=== PATIENT | female | born 2000 | race Caucasian/White ===

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

== ENCOUNTER → 2022-12-07 14:54 | Outpatient (BNVA) | payer OTHER, MEDICAID, SELFPAY | PROVIDERS: Family Provider Nurse Practitioner Family; PCP Nurse Practitioner Family; Visit Provider Nurse Practitioner Family | DX: Z12.4 Encounter for screening for malignant neoplasm of cervix (principal); N92.6 Irregular menstruation, unspecified; R74.8 Abnormal levels of other serum enzymes | CPT/HCPCS: 80053; 81025; 87624 ==

== ENCOUNTER 2023-02-27 08:38 | Day surgery (SDC) | payer MEDICAID, SELFPAY ==
[2023-02-24 16:14] VITALS: BMI 22.7
[2023-02-27] VITALS (13 sets, daily range): BP systolic 85–117; BP diastolic 58–76; PULSE 54–95; RESP 16–18; TEMP 36.3–37.2; O2SAT 99–100
[2023-02-27] MEDS: sodium chloride 0.9% 1,000 ML 30 ML IV (09:10)
[2023-02-27 09:19] LABS: OR HCG Qualitative Urine Negative (Negative)
[2023-02-27] MEDS: scopolamine 1.5 Patch 1 PATCH TRANSDERMA (09:34)
[2023-02-27] MEDS: ondansetron 2 mg/ML SDV 2 mL 4 MG IVP (09:35)
[2023-02-27] MEDS: diphenhydrAMINE 50 mg/mL SDV 1mL 12.5 MG IVP (09:35)
--- NOTE | 2023-02-27 09:40 | W.PM.OPSUD ---
Surgery/Procedure H&P Update DATE OF PROCEDURE: February 27, 2023 DATE H&P PERFORMED: 02/09/23 H&P UPDATE INFORMATION: I have reviewed H&P completed within last 30 days, I have examined patient prior to procedure and No changes to prior documentation PLANNED PROCEDURE: Operation Date: 02/27/23 10:05 Proposed Procedures p lap right inguinal hernia with mesh 70873,K40.90(Right) - Ammon Goldstein, DO
[2023-02-27] MEDS: ceFAZolin 2,000 MG in sodium chloride 0.9% (plus) 50 ML 100 MG IV (10:01)
[2023-02-27] MEDS: lidocaine-epi 2% 20 mL INJ INJECTION (10:28)
--- NOTE | 2023-02-27 11:27 | PM.OP ---
Operative Report Date of procedure: February 27, 2023 Pre-op diagnosis: Right inguinal hernia Post-op diagnosis: other (Right femoral hernia) Procedure done: Laparoscopic repair of right inguinal hernia with mesh Implants: Large right 3D max Bard mesh Specimens removed/disposition: None Surgeon: Dr. Ammon Goldstein DO Anesthesia: General Estimated blood loss (mL): 5 Complications: None apparent Brief History: This is a very pleasant 22-year-old female who presented my office with a right inguinal hernia. Laparoscopic repair with mesh was indicated. The risks and benefits were explained and documented. Procedure: Patient was wheeled into the operative room and placed on the OR table in a supine position. Abdomen was inspected prepped and draped in usual sterile fashion. Time-out was performed and all present were in agreement. A 15 blade scalpel was used to make 1.2 centimeter incision infraumbilically. Combination of sharp and blunt dissection was performed down to the anterior rectus sheath which was opened sharply. The dissecting balloon was then inserted into the space of Retzius and blown up. We put the camera into the port and identified that we were in the correct space. I then placed 2 5 millimeter trocars suprapubically in the midline. I then used endokitners to bluntly dissect in the space of Retzius out laterally. A femoral total hernia was identified on the right. Blunt dissection was performed to dissect the hernia sac out of the femoral canal. A large right inguinal mesh was then placed into the space of Retzius. The mesh was unrolled and tacked once medially at the pubic bone. The mesh laid out nicely over the spermatic cord. A small hole in the peritoneum was repaired with endoclips. I watched the hernia sac remained in place as insufflation was removed. Incisions were closed with 4-0 Monocryl in a subcuticular interrupted fashion. Skin glue was applied. Patient tolerated the procedure well.
[2023-02-27] MEDS: fentaNYL 50 mcg/mL INJ 2mL IVP (11:37)
[2023-02-27] MEDS: oxyCODONE-APAP 5-325 mg Tablet 1 TAB PO (12:02)
--- NOTE | 2023-02-27 13:56 | ANES.PREANE2 ---
Pre-Anesthetic Assessment Height/Weight: Height 1.7 m Weight 65.771 kg Temp Pulse Resp BP Pulse Ox O2 Del Method 98.9 F 54 L 18 103/59 100 Room Air 02/27/23 12:00 02/27/23 12:27 02/27/23 12:27 02/27/23 12:27 02/27/23 12:27 02/27/23 12:15 Operation Date: 02/27/23 10:05 Proposed Procedures p lap right inguinal hernia with mesh [id number],K40.90(Right) - Ammon Goldstein DO Familial anesthetic complications: none Was Beta Brittny taken within 24 hours: N/A Was Clonidine taken within 24 hours: N/A Last intake: Intake Last Liquid Date 02/26/23 Last Liquid Time 18:30 Last Solid Date 02/26/23 Last Solid Time 18:30 Social No alcohol and No tobacco Exam alert, oriented x 3, clear to auscultation bilaterally and regular rate & rhythm Airway Submandibular: within normal limits Cervical ROM: within normal limits Mallampati: Class II Dentition: full Neuropsych Anxiety and Depression Anesthetic Plan ASA status: 2 Anesthesia: General Medications/Allergies Home Medications Medication Instructions Recorded Confirmed Last Taken Type ascorbate calcium (vitamin C) 500 500 mg PO DAILY 06/21/21 02/24/23 02/13/23 History mg tablet cetirizine 10 mg capsule (Zyrtec) 10 mg PO DAILY PRN Allergic 06/21/21 02/24/23 02/13/23 History Symptoms docusate sodium 100 mg capsule 100 mg PO BID #14 caps 02/27/23 Unknown Rx (Colace) oxycodone-acetaminophen 5 mg-325 1 tab PO Q6H PRN pain #20 tabs 02/27/23 Unknown Rx mg tablet Allergies Allergy/AdvReac Type Severity Reaction Status Date / Time No Known Allergies Allergy Verified 02/27/23 09:04 [facility] Anesthesia Medical History Contraception management No pertinent past medical history neghx: htn,dm,thyroid,dvt/pe PCP: [facility] Surgical History History of History of tonsillectomy and adenoidectomy Family History Grandfather Heart disease Maternal Denies family history of Colon cancer Ovarian cancer Diabetes Hyperlipidemia Breast cancer Hypertension Uterine cancer Stroke Social History Smoking and tobacco status: never smoked Alcohol intake: never Substance/Drug Use: never Female Reproductive History Date of last menstrual period: 02/24/23 Spontaneous abortions: No Data Anesthesia Cardiac Studies: Holter Monitor 10/07/20
--- NOTE | 2023-02-27 16:22 | ANE.PACU2 ---
Inpatient post-anesthesia follow up: Airway intact: Yes Vital signs: Temperature 98.9 F Pulse Rate 54 Respiratory Rate 18 Blood Pressure 103/59 Pulse Oximetry 100 Oxygen Delivery Me thod Room Air Oxygen Flow Rate Fraction of Inspir ed Oxygen Hydration adequate: Yes Nausea and vomiting: No Pain level: 3 Mental status: Baseline
== END 2023-02-27 12:50 | disposition home or self-care (01) ==
PROVIDERS: Anesthesiology; PCP Nurse Practitioner Family; Visit Provider Surgery
PROC: (CPT 49650; principal; 2023-02-27 09:55)
DX: K40.90 Unilateral inguinal hernia, without obstruction or gangrene, not specified as recurrent (principal); Z79.899 Other long term (current) drug therapy
CPT/HCPCS: 49650; 51702; 81025; 84703; C1781; J0131; J0690; J1100; J1170; J1200; J2405; J2704; J2710; J3010; J3490; J7030

== ENCOUNTER → 2023-06-15 09:39 | Outpatient (BNVA) | payer OTHER, MEDICAID, SELFPAY | PROVIDERS: PCP Nurse Practitioner Family; Visit Provider Nurse Practitioner Women's Health | DX: R10.2 Pelvic and perineal pain (principal) | CPT/HCPCS: 81000 ==

== ENCOUNTER 2024-10-31 14:46 | Outpatient (CLI) | payer MEDICAID, SELFPAY ==
--- NOTE | 2024-10-31 14:57 | MR_ITS ---
WS: [id number] MRI HEAD WITHOUT CONTRAST TECHNIQUE: Sagittal T1, T2 axial, T2 axial FLAIR, axial and coronal T1 images, axial susceptibility w eighted imaging, axial diffusion weighted images, and coronal T2 images were obtained. CLINICAL INFORMATION: PERSISTENT HEADACHES COMPARISON: None. FINDINGS: No evidence of restricted diffusion to suggest acute ischemia. Ventricular system and basilar cistern s are patent. No suspicious intracranial signal abnormalities. Normal livingston-white differentiation. Nor mal posterior fossa. Normal vascular flow voids at the skull base. No extra-axial fluid collections. No evidence of mass or mass effect. Paranasal sinuses are well aerated. Normal posterior nasopharynx. Mastoid air cells are well aerated. No hemosiderin on the susceptibly weighted images. Normal optic chiasm and pituitary infundibulum. Te mporal lobes and hippocampal formations are normal in appearance. MR/MR head wo con* [id number] IMPRESSION: 1. No evidence of restricted diffusion to suggest acute ischemia. 2. No suspicious intracranial signal abnormalities. Normal livingston-white differen tiation. 3. No hemosiderin on susceptibility-weighted images. 4. No other suspicious findings.
== END 2024-10-31 14:47 | disposition home or self-care (01) ==
LOC: RAD 14:51
PROVIDERS: PCP Nurse Practitioner Family; Visit Provider Nurse Practitioner
DX: R51.9 Headache, unspecified (principal)
CPT/HCPCS: 70551

== ENCOUNTER → 2025-05-19 11:22 | Outpatient (BNVA) | payer MEDICAID, SELFPAY | PROVIDERS: PCP Nurse Practitioner Family; Visit Provider Nurse Practitioner Family | DX: R53.83 Other fatigue (principal) | CPT/HCPCS: 81025; 86160; 86618; 86666; 86668; 86757 ==

== ENCOUNTER 2025-05-28 12:11 | Outpatient (CLI) | payer MEDICAID, SELFPAY ==
--- NOTE | 2025-05-28 12:15 | US_ITS ---
WS: [id number] RIGHT UPPER QUADRANT ULTRASOUND HISTORY: R07.9 - Chest pain, unspecified COMPARISON: None available. Liver: 12.5 cm in length. Normal size liver and echogenicity. No bile duct dilatation or mass. Portal Vein: Normal hepatopetal flow with monophasic waveform. Gallbladder: Normally distended gallbladder with cholelithiasis. Numerous stones are present. No gallbladder wall thickening. CBD: 0.4 cm Pancreas: Normal size and echogenicity. Right kidney: 9.3 cm in length. Normal size and echogenicity. No hydronephrosis or mass. Aorta and IVC: Unremarkable abdominal aorta and IVC. No ascites. US/US gall bladder 49216 IMPRESSION: 1. Cholelithiasis without acute cholecystitis. 2. No hepatobiliary duct dilatation.
== END 2025-05-28 12:12 | disposition home or self-care (01) ==
LOC: RAD 12:15
PROVIDERS: PCP Nurse Practitioner; Visit Provider Nurse Practitioner Family
DX: R07.9 Chest pain, unspecified (principal); K80.20 Calculus of gallbladder without cholecystitis without obstruction
CPT/HCPCS: 76705

== ENCOUNTER 2025-06-02 17:11 | Emergency (ER) | payer MEDICAID, SELFPAY ==
--- OUTSIDE RECORDS SUMMARY | 2003-10-22 19:00 | XMS_ITS | Continuity of Care Document ---
Author Name [facility] Address [address] [place] [address] Organization [facility] Care Team Providers Care Oxygen System Tester Name Role Phone [facility] Unavailable Unavailable Problems Problem Status [...] Date Perfomer Comments Source wisdom teeth removal [facility] tonsillectomy [facility]/ [facility]
--- OUTSIDE RECORDS SUMMARY | 2025-03-19 09:50 | XMS_ITS ---
Author Organization [facility] Address [address] [address] Care Team Providers Care Self Propelled Mining Machine Operator Name Role Phone Alexa Shirley Unavailable [phone] Allergies No Known Allergies Results Component Value Reference Range Notes COMPREHENSIVE METABOLIC PANE L (66097) Reviewed date:03/23/2025 10:27:35 AM Interpretation: Performing Lab:[place], [facility]-[id number] Issa [facility], [id number] Oralia Tapia MD Notes/Report: 0 0 0 0 0 GLUCOSE 69 65-99 mg/dL Fasting reference interval UREA NITROGEN (BUN) 6 7-25 mg/dL CREATININE 0.52 0.50-0.96 mg/dL EGFR 135 > OR = 60 mL/min/1.73m2 BUN/CREATININE RATIO 12 6-22 (calc) SODIUM 140 135-146 mmol/L POTASSIUM 3.9 3.5-5.3 mmol/L CHLORIDE 101 98-110 mmol/L CARBON DIOXIDE 25 20-32 mmol/L CALCIUM 9.6 8.6-10.2 mg/dL PROTEIN, TOTAL 7.3 6.1-8.1 g/dL ALBUMIN 4.4 3.6-5.1 g/dL GLOBULIN 2.9 1.9-3.7 g/dL (calc) ALBUMIN/GLOBULIN RATIO 1.5 1.0-2.5 (calc) BILIRUBIN, TOTAL 0.3 0.2-1.2 mg/dL ALKALINE PHOSPHATASE 82 31-125 U/L AST 18 10-30 U/L ALT 11 6-29 U/L CBC (INCLUDES DIFF/PLT) ([id number]) Reviewed date:03/23/2025 10:27:35 AM Interpretation: Performing Lab:[facility]-[id number] Mane [id number] Oralia Tapia MD Notes/Report: 0 0 0 0 0 WHITE BLOOD CELL COUNT 5.6 3.8-10.8 Thousand/ uL RED BLOOD CELL COUNT 4.69 3.80-5.10 Million/uL HEMOGLOBIN 13.7 11.7-15.5 g/dL HEMATOCRIT 43.9 35.0-45.0 % MCV 93.6 80.0-100.0 fL MCH 29.2 27.0-33.0 pg MCHC 31.2 32.0-36.0 g/dL For adults, a slight decrease in the calculated MCHC value (in the range of 30 to 32 g/dL) is most likely not clinically significant; however, it should be interpreted with caution in correlation with other red cell parameters and the patient's clinical condition. RDW 12.5 11.0-15.0 % PLATELET COUNT 270 140-400 Thousand/uL MPV 10.5 7.5-12.5 fL ABSOLUTE NEUTROPHILS 2716 5553-6828 cells/uL ABSOLUTE LYMPHOCYTES 2094 850-3900 cells/uL ABSOLUTE MONOCYTES 526 200-950 cells/uL ABSOLUTE EOSINOPHILS 241 15-500 cells/uL ABSOLUTE BASOPHILS 22 0-200 cells/uL NEUTROPHILS 48.5 LYMPHOCYTES 37.4 MONOCYTES 9.4 EOSINOPHILS 4.3 BASOPHILS 0.4 URINALYSIS, COMPLETE W/REFLE X TO CULTURE ([id number]) Reviewed date:03/23/2025 10:27:35 AM Interpretation: Performing Lab:[facility]-[id number] Issa [place], [id number] Oralia Tapia MD Notes/Report: 0 0 0 0 0 0 0 0 0 0 0 0 0 0 0 COLOR YELLOW YELLOW APPEARANCE CLOUDY CLEAR SPECIFIC GRAVITY 1.024 1.001-1.035 PH 6.5 5.0-8.0 GLUCOSE NEGATIVE NEGATIVE BILIRUBIN NEGATIVE NEGATIVE KETONES TRACE NEGATIVE OCCULT BLOOD NEGATIVE NEGATIVE PROTEIN TRACE NEGATIVE NITRITE NEGATIVE NEGATIVE LEUKOCYTE ESTERASE TRACE NEGATIVE WBC 0-5 < OR = 5 /HPF RBC NONE SEEN < OR = 2 /HPF SQUAMOUS EPITHELIAL CELLS 40-60 < OR = 5 /HPF BACTERIA MODERATE NONE SEEN /HPF CALCIUM OXALATE CRYSTALS MODERATE NONE OR FEW /HPF HYALINE CAST NONE SEEN NONE SEEN /LPF NOTE This urine was analyzed for the presence of WBC, RBC, bacteria, casts, and other formed elements. Only those elements seen were reported. REFLEXIVE URINE CULTURE CULTURE INDICATED - RESULTS TO FOLLOW CULTURE, URINE, ROUTINE Micro Number: [id number] Test Status: Final Specimen Source: Urine Specimen Quality: Adequate Result: Mixed genital kathi isolated. These superficial bacteria are not indicative of a urinary tract infection. No further organism identification is warranted on this specimen. If clinically indicated, recollect clean-catch, mid-stream urine and transfer immediately to Urine Culture Transport Tube. CULTURE, URINE, ROUTINE SEE NOTE CULTURE INDICATED - RESULTS TO FOLLOW CULTURE, URINE, ROUTINE Micro Number: [id number] Test Status: Final Specimen Source: Urine Specimen Quality: Adequate Result: Mixed genital kathi isolated. These superficial bacteria are not indicative of a urinary tract infection. No further organism identification is warranted on this specimen. If clinically indicated, recollect clean-catch, mid-stream urine and transfer immediately to Urine Culture Transport Tube. VITAMIN B12/FOLATE, SERUM PA BRYSON (7065) Reviewed date:03/23/2025 10:27:35 AM Interpretation: Performing Lab:[facility]-[id number] Issa [place], [id number] Oralia Tapia MD Notes/Report: 0 0 0 0 0 VITAMIN B12 422 793-4007 pg/mL FOLATE, SERUM 23.8 Reference Range Low: <3.4 Borderline: 3.4-5.4 Normal: >5.4 TSH W/REFLEX TO FT4 ([id number]) Reviewed date:03/23/2025 10:27:35 AM Interpretation: Performing Lab:[facility]-[id number] Issa [place], [id number] Oralia Tapia MD Notes/Report: 0 0 0 0 0 TSH W/REFLEX TO FT4 1.33 Reference Range > or = 20 Years 0.40-4.50 Ranges First trimester 0.26-2.66 Second trimester 0.55-2.73 Third trimester 0.43-2.91 REASON FOR VISIT thinks meds are making her sick, req bloodwork Medications Medication SIG (Take, Route, Frequency, Duration) Notes Start Date End Date Status oxyCODONE HCl 5 MG Oral; Duration: 2 Days Not-Taking Sertraline HCl 50 MG TAKE 1 TABLET BY MO UTH DAILY Oral; Duration: 30 Days Not-Taking metroNIDAZOLE 500 MG Oral; Duration: 7 Days Not-Taking Doxycycline Hyclate 100 MG Oral; Duration: 7 Days Not-Taking Escitalopram Oxalate 10 MG Oral; Duratio n: 30 Days Not-Taking oxyCODONE-Acetaminophen 5-325 MG Oral; Duration: 5 Days Not-T aking Ondansetron HCl 4 MG 1 tablet as needed for nausea/vomiting Orally three times daily; Duration: 3 09/18/2024 Not-Taking Ondansetron [address] one tablet ON TOP OF THE TONGUE WHERE IT WILL DISSOLVE THEN SWALLOW EVERY 6 HOURS NEEDED FOR NAUSEA/EMESIS Oral; Duration: 7 Days Not-Taking Albuterol Not-Taking SUMAtriptan Succinate 50 MG 1 tablet as needed, may take second dose at least 2 hours after first dose . Orally Once a day; Duration: 30 days As needed for migraine headache 09/18/2024 Not-Taking Amitriptyline HCl 10 MG TAKE ONE TABLET BY MOUTH ONCE DAILY AT BEDTIME Oral; Duration: 30 Days Active Omeprazole 20 MG 1 capsule 1/2 to 1 hour before morning meal Orally Once a day; Duration: 30 day(s) 03/11/2025 Active Rizatriptan Benzoate [address] one tab let ON TOP OF THE TONGUE WHERE IT WILL DISSOLVE THEN SWALLOW AT ONSET OF MIGRAINE MAY REPEAT IN TWO HOURS IF NEEDED MAX DOSE TWO TABLETS IN 24 HOURS Oral; Duration: 30 Days Active Social History Sex Assigned At : Social History Observation Description Sex Assigned At Female Vital Signs Blood pressure systolic 122 mm Hg 03/19/20 25 Blood pressure diastolic 76 mm Hg 025 Heart Rate 82 /min 03/19/2025 Temperature 98.3 degrees Fahrenheit 03/19/20 25 Oximetry 96 % 03/19/2025 Weight 178.8 lbs 03/19/2025 Weight-kg 81.1 kg 03/19/2025 Height 67 in 03/19/2025 Height-cm 170.18 cm 03/19/2025 BMI 28 kg/m2 03/19/2025 Encounters Encounter Location Date Provider Diagnosis [address] [address] 03/19/2025 Alexa Shirley Malaise R53.81 Assessments Encounter Date Diagnosis (ICD Code) Assessment Notes Treatment Notes Treatment Clinical Notes Section Notes 03/19/2025 Malaise (ICD-10 - R53.81) Plan Of Treatment No Information Progress Notes * Arleth GAN KDOB:[birth year] (24 yo F)Acc No.[id number]:03/19/2025 Patient: Arleth LOVETT K Provider: Kelsy Shirley :2000 A ge:24 Y S ex:Female Date:03/19/2025 Address:[address] [place] [address] , [place] [facility] [id number] Subjective: * Chief Complaints: * 1 . Thinks meds are making her sick, req bloodwork. * HPI: T ransition of Care: Here today with c/o feeling run down almost daily for a few weeks-this has gotten worse concerned one of her meds is causing this denies pain No meds have changed did start Omeprazole regular menses denies fever. * Medical History: * Medications: T aking Amitriptyline HCl 10 MG Tablet TAKE ONE TABLET BY MOUTH ONCE DAILY AT BEDTIME Oral , Taking Rizatriptan Benzoate [address] one tablet ON TOP OF THE TONGUE WHERE IT WILL DISSOLVE THEN SWALLOW AT ONSET OF MIGRAINE MAY REPEAT IN TWO HOURS IF NEEDED MAX DOSE TWO TABLETS IN 24 HOURS Oral , Taking Omeprazole 20 MG Capsule Delayed Release 1 capsule 1/2 to 1 hour before morning meal Orally Once a day , Not-Taking Ondansetron 4 [address] place one tablet ON TOP OF THE TONGUE WHERE IT WILL DISSOLVE THEN SWALLOW EVERY 6 HOURS NEEDED FOR NAUSEA/EMESIS Oral , Not-Taking Ondansetron HCl 4 MG Tablet 1 tablet as needed for nausea/vomiting Orally three times daily , Not-Taking SUMAtriptan Succinate 50 MG Tablet 1 tablet as needed, may take second dose at least 2 hours after first dose . Orally Once a day As needed for migraine headache, Not-Taking Albuterol , Not- Taking oxyCODONE-Acetaminophen 5-325 MG Tablet Oral , Not-Taking Escitalopram Oxalate 10 MG Tablet Oral , Not-Taking Doxycycline Hyclate 100 MG Capsule Oral , Not-Taking Sertraline HCl 50 MG Tablet TAKE 1 TABLET BY MOUTH DAILY Oral , Not-Taking oxyCODONE HCl 5 MG Tablet Oral , Not-Taking metroNIDAZOLE 500 MG Tablet Oral , Medication List reviewed and reconciled with the patient * Allergies: N .K.D.A. Objective: * Vitals: B P:122/76mm Hg, HR:82/min, Temp:98.3F, Oxygen sat %:96%, Wt:178.8lbs, Wt-k.1 kg, Ht: 67 in, Ht-cm: 170.18 cm, BMI:28Index, Pain scale:01-10, Body Surface Area: 1.96. Assessment: * [facility] (Primary[facility] Plan: * Treatment: Value Reference Range G LUCOSE 69 65-99 - mg/dL * U VIRGINIE NITROGEN (BUN) 6 L 7-25 - mg/dL * C REATININE 0.52 0.50-0.96 - mg/dL * B UN/CREATININE RATIO 12 6-22 - (calc) * S ODIUM 140 135-146 - mmol/L * P OTASSIUM 3.9 3.5-5.3 - mmol/L * C HLORIDE 101 98-110 - mmol/L * C ARBON DIOXIDE 25 20-32 - mmol/L * C ALCIUM 9.6 8.6-10.2 - mg/dL * P ROTEIN, TOTAL 7.3 6.1-8.1 - g/dL * A LBUMIN 4.4 3.6-5.1 - g/dL * G LOBULIN 2.9 1.9-3.7 - g/dL (calc ) * A LBUMIN/GLOBULIN RATIO 1.5 1.0-2.5 - (calc) * B ILIRUBIN, TOTAL 0.3 0.2-1.2 - mg/dL * A LKALINE PHOSPHATASE 82 31-125 - U/L * A ST 18 10-30 - U/L * A LT 11 6-29 - U/L * E GFR 135 > OR = 60 - mL/min/1 .73m2 ?LAB: CBC (INCLUDES DIFF/PLT) ([id number]) (Collection Date & Time - 03/20/2025 08:40 AM)* Value Reference Range W SHANTI BLOOD CELL COUNT 5.6 3.8-10.8 - Thousan d/uL * R ED BLOOD CELL COUNT 4.69 3.80-5.10 - Million/ uL * H EMOGLOBIN 13.7 11.7-15.5 - g/dL * H EMATOCRIT 43.9 35.0-45.0 - % * M CV 93.6 80.0-100.0 - fL * M CH 29.2 27.0-33.0 - pg * M CHC 31.2 L 32.0-36.0 - g/dL * R DW 12.5 11.0-15.0 - % * P LATELET COUNT 270 140-400 - Thousand/u L * N EUTROPHILS 48.5 - % * A BSOLUTE NEUTROPHILS 2716 5709-4075 - cells/uL * L YMPHOCYTES 37.4 - % * A BSOLUTE LYMPHOCYTES 2094 850-3900 - cells/uL * M ONOCYTES 9.4 - % * A BSOLUTE MONOCYTES 526 200-950 - cells/uL * E OSINOPHILS 4.3 - % * A BSOLUTE EOSINOPHILS 241 15-500 - cells/uL * B ASOPHILS 0.4 - % * A BSOLUTE BASOPHILS 22 0-200 - cells/uL * M PV 10.5 7.5-12.5 - fL ?LAB: URINALYSIS, COMPLETE W/REFLEX TO CULTURE ([id number]) (Collection Date & Time - 03/20/2025 08:40AM)* Value Reference Range C OLOR YELLOW YELLOW - * A PPEARANCE CLOUDY A CLEAR - * B ILIRUBIN NEGATIVE NEGATIVE - * K ETONES TRACE A NEGATIVE - * S PECIFIC GRAVITY 1.024 1.001-1.035 - * O CCULT BLOOD NEGATIVE NEGATIVE - * P H 6.5 5.0-8.0 - * P ROTEIN TRACE A NEGATIVE - * N ITRITE NEGATIVE NEGATIVE - * L EUKOCYTE ESTERASE TRACE A NEGATIVE - * W BC 0-5 < OR = 5 - /HPF * R BC NONE SEEN < OR = 2 - /HPF * S QUAMOUS EPITHELIAL CELLS 40-60 A < OR = 5 - /HPF * B ACTERIA MODERATE A NONE SEEN - /HPF * C ALCIUM OXALATE CRYSTALS MODERATE A NONE OR FEW - /H PF * H YALINE CAST NONE SEEN NONE SEEN - /LPF * G LUCOSE NEGATIVE NEGATIVE - * R EFLEXIVE URINE CULTURE SEE NOTE - ?LAB: VITAMIN B12/FOLATE, SERUM PANEL (7065) (Collection Date & Time - 03/20/2025 08:40 AM)* Value Reference Range F OLATE, SERUM 23.8 - ng/mL * V ITAMIN B12 922 828-2359 - pg/mL ?LAB: TSH W/REFLEX TO FT4 (25042) (Collection Date & Time - 03/20/2025 08:40 AM)* Value Reference Range T SH W/REFLEX TO FT4 1.33 - mIU/L * Procedure Codes: 1 125F AMNT PAIN NOTED PAIN PRSNT, 1126F AMNT PAIN NOTED NONE PRSNT * Billing Information: * Visit Code: * Procedure Codes: 1125F AMNT PAIN NOTED PAIN PRSNT. 1126F AMNT PAIN NOTED NONE PRSNT. * Electronic signature of Chele Shirley , [email or web address] on 06/04/2025 at 12:16 PM CDT Sign off status: Pending * Provider: Kelsy Shirley Date: 0 03/19/2025 Generated for Romelia vizcaino/Prakash/eTkaren on: 0 06/04/2025 12:16 PM CDT History and Physical Notes * HPI (History of Present Illness) Category Sub-Category Detail Notes Category Not es Transition of Care Here today with c/o feeling run down almost daily for a few weeks-this has gotten worse concerned one of her meds is causing this denies pain No meds have changed did start Omeprazole regular menses denies fever
--- OUTSIDE RECORDS SUMMARY | 2025-05-20 06:40 | XMS_ITS ---
Author Organization [facility] Address [address] [place] [address] Care Team Providers Care Conference Concierge Name Role Phone Alexa Shirley [phone] REASON FOR VISIT symptoms continue Social History Sex Assigned At : Social History Observation Description Sex Assigned At Female Encounters Encounter Location Date [facility] [address] [address] 05/20/2025 Alexa Shirley Plan Of Treatment No Information Progress Notes * Arleth GAN KDOB:[birth year] (24 yo F)Acc No.[id number]:05/20/2025 Patient: Maksim STOCK Arleth Cardenas Provider: Kelsy Shirley :2000 A ge:24 Y S ex:Female Date:05/20/2025 Address:[address] [place], [place] [id number] Subjective: * Chief Complaints: * 1 . Symptoms continue. * Medical History: Objective: * Vitals: Assessment: Plan: * Treatment: * Billing Information: * Visit Code: * Procedure Codes: * Electronic signature of Chele Shirley GUYPBCMSNehemiah on 06/04/2025 at 12:16 PM CDT Sign off status: Pending * Provider: Kelsy Shirley Date: 0 05/20/2025 Generated for Romelia ng/Faxing/eTransmitting on: 06/04/2025 12:16 PM CDT
[2025-06-02 17:15] VITALS: BP 116/79; PULSE 77; RESP 16; TEMP 36.8; O2SAT 97; BMI 26.6
--- NOTE | 2025-06-02 17:50 | ED_ITS ---
HPI - Abdominal Pain 2 General: Chief Complaint: Abdominal Pain Stated Complaint: abd pain, n/v/d/f, NORTON Time Seen by Provider: 06/02/25 17:36 History of Present Illness: Patient is a 24-year-old female without medical issues, presented to ED with diarrhea, nausea, and abdominal pain. Patient was recently worked up for right upper quadrant on and off pain and found to have cholelithiasis without acute cholecystitis. She is currently awaiting surgeon appointment in 7 days, next Monday. Today, she stated she had diarrhea a large volume, nonbloody, x 3, and severe nausea without emesis. She is trying to keep from throwing up. This was not associated with eating today. She has not had alcohol intake. She has severe right upper quadrant abdominal pain, for which she took a pain pill she was given by primary and has continued right upper quadrant pain. Associated Symptoms: Reports diarrhea, nausea and vomiting; Denies chills and fever(s) Related Data Date of Last Menstrual Period: 06/01/25 Home Medications ?Medication ?Instructions ?Recorded ?Confirmed No Known Home Medications 05/28/2505/23 Allergies Allergy/AdvReac Type Severity Reaction Status Date / Time No Known Allergies Allergy Verified 06/02/25 17:18 Review of Systems 2 General: Reports: 10 or more systems reviewed and unremarkable except in HPI and below Const: Reports: body aches, change in appetite and fatigue; Denies: fever(s) or chills Eyes: Denies: change in vision or blurry vision ENMT: Denies: throat pain or mouth pain Card: Denies: chest pain or palpitations Resp: Denies: dyspnea or non-productive cough GI: Reports: abdominal pain, nausea, vomiting and diarrhea : Denies: flank pain or difficulty voiding Musc: Denies: neck pain, back pain or extremity pain Skin/Breast: Denies: rash or pruritus Neuro: Denies: headache(s) or numbness in extremities Psych: Denies: anxiety or depression Kalpesh/Lymph: Denies: easy bruising or easy bleeding PFSH ED 2 PFSH: Medical History (Updated 06/02/25 @ 19:54 by CJ Crane) No pertinent past medical history neghx: htn,dm,thyroid,dvt/pe PCP: [facility] Contraception management Surgical History History of inguinal hernia repair (~02/2023) History of History of tonsillectomy and adenoidectomy Family History Grandfather Heart disease Maternal Denies family history of Colon cancer Ovarian cancer Diabetes Hyperlipidemia Breast cancer Hypertension Uterine cancer Stroke Social History Smoking and tobacco/nicotine status: never used tobacco/nicotine Alcohol intake: never Substance/Drug Use: never Female Reproductive History: Date of last menstrual period: 06/01/25 S pontaneous abortions: No Physical Exam 2 Const: COMMON NORMALS: no acute distress, average body habitus and patient oriented x3 EXAM LIMITATIONS: altered mental status GENERAL APPEARANCE: c ooperative and comfortable HENMT: COMMON NORMALS: normocephalic, atraumatic and hearing grossly normal bilaterally HEAD & SCALP: normocephalic and atraumatic Neck/C-Spine: COMMON NORMALS: full ROM and no lymphadenopathy Lymph: LYMPHATIC: no lymphadenopathy noted Chest: COMMONS NORMALS: normal inspection of the chest, normal palpation of entire chest wall and normal palpation of the breasts BREAST/AXILLA PALPATION: Yes normal palpation of the breasts Resp: COMMON NORMALS: normal respiratory effort, No retractions and clear to auscultation bilaterally AUSCULTATION: clear to auscultation bilaterally Cardio: COMMON NORMALS: regular rate and regular rhythm RATE: regular rate RHYTHM: regular rhythm GI: COMMON NORMALS: Normal to inspection, nondistended, normoactive bowel sounds present, Soft to palpation and non-tender PALPATION: Yes Soft to palpation : COMMON NORMALS: Yes no CVA tenderness BLADDER/KIDNEY EXAM: Yes no CVA tenderness Back/Pelvis: COMMON NORMALS: no CVA tenderness Neuro: COMMON NORMALS: patient oriented x3, CN's II-XII intact bilaterally and moves all extremities Psych: COMMON NORMALS: mental status grossly normal, Normal thought process present and speech normal SPEECH: Yes normal speech THOUGHT PROCESS: N ormal thought process present Skin: COMMON NORMALS: no rashes or lesions noted and no wounds GENERAL SKIN EXAM: no rashes or lesions noted Course 2 Reevaluation(s): Reevaluation #1: Patient states she still continues to have pain Vital Signs: Vital signs: Vital Signs Temperature 98.2 F 06/02/25 17:15 Pulse Rate 68 06/02/25 21:17 Respiratory Rate 16 06/02/25 18:43 Blood Pressure 104/66 06/02/25 21:17 Pulse Oximetry 96 06/02/25 21:17 Oxygen Delivery Me thod Room Air 06/02/25 19:21 MDM - Abdominal Pain Medical Decision Making Patient is a 24-year-old female with cholelithiasis and right upper quadrant abdominal pain, labs without leukocytosis, without neutrophilia, and without elevated lipase. Patient therefore does not have acute cholecystitis. Discussed with patient this is the frustrating portion of the cholelithiasis. She has an appointment with surgeon next week. Will have patient return to ED if she has worsening pain, and there is concern for acute cholecystitis. No concern for additional testing at this time/no concern for acute pancreatitis given labs. Exam has mild right upper quadrant tenderness, without guarding, and Rios sign +. No elevation in LFTs, therefore no choledocholithiasis. Patient was discharged home with antiemetics, clear liquid diet, and hydrocodone was given x 1 Lab Data 06/02/25 17:29 06/02/25 17:29 Labs/Radiology: Laboratory Results WBC 4.85 10^3/uL (3.29-11.43) 06/02/25 17:29 RBC 4.88 10^6/uL (3.85-5.65) 06/02/25 17:29 Hgb 14.30 g/dL (11.27-16.99) 06/02/25 17:29 Hct 43.6 % (36-47) 06/02/25 17:29 MCV 89.3 fl (85-98) 06/02/25 17: MCH 29.3 pg (27-33) 06/02/25 17: MCHC 32.8 g/dL (30-55) 06/02/25 17:29 RDW 12.0 % (12.1-15.1) L 06/02/25 17:29 Plt Count 259 10^3/cmm (157-399) 06/02/25 17: MPV 9.9 fL (7.4-10.4) 06/02/25 17:29 Neut % (Auto) 50.2 % 06/02/25 17: Lymph % (Auto) 37.9 % 06/02/25 17: Guadalupe % (Auto) 9.7 % 06/02/25 17: Eos % (Auto) 1.6 % 06/02/25 17: Baso % (Auto) 0.4 % 06/02/25: Neut # (Auto) 2.43 10^3/uL (1.8-7.7) 06/02/25 17: Lymph # (Auto) 1.8 10^3/uL (0.8-4.8) 06/02/25: Guadalupe # (Auto) 0.5 10^3/uL (0.2-0.9) 06/02/25: Eos # (Auto) 0.1 10^3/uL (0.0-0.8) 06/02/25: Baso # (Auto) 0.0 10^3/uL (0.0-0.1) 06/02/25 17: Nucleated RBC % (auto) 0 % 06/02/25: Nucleated RBCs # 0.0 /100WBC 06/02/25: Sodium 140 mmol/L (136-145) 06/02/25 17: Potassium 4.0 mmol/L (3.5-5.1) 06/02/25: Chloride 105 mmol/L (98-107) 06/02/25: Carbon Dioxide 24 mmol/L (22-29) 06/02/25 17: Anion Gap 15.0 (5-19) 06/02/25 17: BUN 9 mg/dL (6-20) 06/02/25 17: Creatinine 0.6 mg/dL (0.5-0.9) 06/02/25 17: GFR Calculation 125.0 mL/min (90-130) 06/02/25 17: Glucose 91 mg/dL (65-115) 06/02/25 17: Calculated Osmolality 288 mOsm/kg (285-295) 06/02/25: Lactic Acid 0.8 mmol/L (0.5-2.2) 06/02/25 17: Calcium 9.2 mg/dL (8.5-10.5) 06/02/25 17: Total Bilirubin 0.2 mg/dL (0.15-1.2) 06/02/25 17: AST 15 U/L (0-32) 06/02/25 17: ALT 11 U/L (0-33) 06/02/25 17: Alkaline Phosphatase 96 U/L (35-105) 06/02/25 17: Total Protein 7.7 g/dL (6.6-8.7) 06/02/25 17: Albumin 4.4 g/dL (3.5-5.2) 06/02/25 17: Globulin 3.3 g/dL (1.3-4.6) 06/02/25 17: Lipase 30 U/L (13-60) 06/02/25 17: HCG, Qual Negative (Negative) 06/02/25 17: Urine Color Yellow (Yellow) 06/02/25 17: Urine Appearance Clear (CLEAR) 06/02/25 17: Urine pH 5.5 (5-7) 06/02/25 17: Ur Specific [place] 1.030 (1.005-1.030) 06/02/25: Urine Protein Negative (Negative) 06/02/25 17: Urine Glucose (UA) Negative (Normal) 06/02/25 17: Urine Ketones Trace (Negative) 06/02/25 17: Urine Blood 1+ (Negative) A 06/02/25 17: Urine Nitrate Negative (Negative) 06/02/25 17: Urine Bilirubin Negative (Negative) 06/02/25 17: Urine Urobilinogen 1.0 mg/dL (Negative) 06/02/25 17: Ur Leukocyte Esterase Negative (Negative) 06/02/25: Urine RBC 0-2 /hpf (0-2) 06/02/25 17: Urine WBC 0-5 /hpf (0-5) 06/02/25 17: Ur Squamous Epith Cells 6-10 /hpf (0-5) 06/02/25 17: Amorphous Sediment Not Reportable 06/02/25 17: Urine Bacteria 1+ /hpf (NONE) H 06/02/25 17:29 Hyaline Casts 0.81 /lpf 06/02/25 17:29 No radiology studies performed this visit Discharge Plan Discharge Patient Disposition: Home Clinical Impression: Abdominal pain, RUQ Cholelithiasis Qualifiers: Cholelithiasis location: gallbladder Cholecystitis acuity: chronic Biliary obstruction: without biliary obstruction Condition: Stable Prescriptions: No Action No Known Home Medications Discharge Orders: Discharge ED (Routine); Ordered 06/02/25 Ordered By: Natalya Claros Referrals: Alexa Shirley FNP [Primary Care Provider, Family Practice] Discharge Diet: Advance as tolerated, Clear Liquid and Full LIquid Patient Instructions: Biliary Colic (ED), Gallstones (ED), Abdominal Pain (ED), Opioid Safety, Pain Management, Patient Portal & Fermin Instructions Activity Restrictions/Additional Instructions: Follow-up with your surgeon next week Follow a clear liquid diet, and advance to full liquid diet if you tolerate this for 24 hours. Then a bland, gallbladder diet. Return to ED with worsening pain, nausea, diarrhea, fever greater than 100.4 ?F Stand Alone Forms: Work/School Release Print Language: Sudanese Coding Level of Care Code ED Superintendent Plant for Malini Chaney
[2025-06-02 18:00] LABS: Hematocrit 43.6 % (36-47); Hemoglobin 14.30 g/dL (11.27-16.99); Mean Corpuscular HGB Conc 32.8 g/dL (30-55); Mean Corpuscular Hemoglobin 29.3 pg (27-33); Mean Corpuscular Volume 89.3 fl (85-98); Nucleated Red Blood Cells % 0 %; Platelet Count 259 10^3/cmm (157-399); Red Blood Count 4.88 10^6/uL (3.85-5.65); White Blood Count 4.85 10^3/uL (3.29-11.43)
[2025-06-02 18:08] LABS: HCG, Serum Qual Negative (Negative)
[2025-06-02 18:43] VITALS: RESP 16; O2SAT 98
[2025-06-02] MEDS: morphine 4 mg/mL SDV 1 mL IVP ×2 (18:43→20:00)
[2025-06-02] MEDS: ondansetron 2 mg/ML SDV 2 mL 4 MG IVP (18:43)
[2025-06-02 18:48] LABS: Alanine Aminotransferase 11 U/L (0-33); Albumin Level 4.4 g/dL (3.5-5.2); Alkaline Phosphatase 96 U/L (35-105); Anion Gap 15.0 (5-19); Aspartate Amino Transferase 15 U/L (0-32); Blood Urea Nitrogen 9 mg/dL (6-20); Calcium 9.2 mg/dL (8.5-10.5); Carbon Dioxide 24 mmol/L (22-29); Chloride 105 mmol/L (98-107); Creatinine Clr Calc Pharmacy 157.4255; Globulin 3.3 g/dL (1.3-4.6); Glucose 91 mg/dL (65-115); Lipase 30 U/L (13-60); Osmolality Calculated 288 mOsm/kg (285-295); Potassium 4.0 mmol/L (3.5-5.1); Sodium 140 mmol/L (136-145); Total Protein 7.7 g/dL (6.6-8.7)
[2025-06-02 18:49] LABS: Glucose Urine UA Negative (Normal); Lactic Sepsis W/Reflex 0.8 mmol/L (0.5-2.2); Nitrate Urine Negative (Negative); Specific Gravity, Urine 1.030 (1.005-1.030)
[2025-06-02 18:54] LABS: Add Urine Microscopic? YES
[2025-06-02 19:21] VITALS: BP 105/61; PULSE 70; O2SAT 98
[2025-06-02 19:30] VITALS: BP 95/58; PULSE 69; O2SAT 98
[2025-06-02 20:00] VITALS: BP 105/64; PULSE 69; O2SAT 99
[2025-06-02] MEDS: orphenadrine 30 mg/mL Inj 2 mL 60 MG IV (20:00)
[2025-06-02] MEDS: HYDROcodone-acetaminophen 10-325 mg Tablet 1 TAB PO (21:16)
[2025-06-02 21:17] VITALS: BP 104/66; PULSE 68; O2SAT 96
--- OUTSIDE RECORDS SUMMARY | 2025-06-04 12:16 | XMS_ITS | Patient Health Record ---
Author Organization [facility] Address [address] [address] Care Team Providers Care Capacity Planning Engineer Name Role Phone Alexa Shirley Unavailable [phone] Allergies No Known Allergies Results Component Value Reference Range Notes CULTURE, URINE, ROUTINE (395 ) Reviewed date:09/22/2024 06:12:35 AM Interpretation: Performing Lab:[place], [facility]-[id number] Issa [facility], [id number] Oralia Tapia MD Notes/Report: 0 CULTURE, URINE, ROUTINE SEE NOTE CULTURE, URINE, ROUTINE Micro Number: [id number] Test Status: Final Specimen Source: Urine, clean catch Specimen Quality: Adequate Result: Greater than 100,000 CFU/mL of Staphylococcus saprophyticus The Clinical Laboratory Standards [place] (CLSI) does not advise routine susceptibility testing of urine isolates of S. saprophyticus because infections respond to urinary concentrations of agents commonly used to treat acute, uncomplicated UTI such as nitrofurantoin, trimethoprim-sulfamethoxazo le or a fluoroquinolone. Urine Dipstick Test Reviewed date:09/22/2024 06:12:35 AM Interpretation:Abnormal Performing Lab: Notes/Report: Abnormal Glucose neg neg - 4+ Bilirubin neg neg - 3+ Ketones neg neg - 4+ Specific [place] 1.015 1 - 1.030 Blood 3+ (200) neg - 3+ Ph 6.5 5.0 - 9.0 Protein 2+ (100) neg - 4+ Urobilinogen neg 0.2 - 12 mg/dl Nitrites neg neg - pos Leukocytes 2+ (125) neg - 3+ TSH W/REFLEX TO FT4 (79200) Reviewed date:03/23/2025 10:27:35 AM Interpretation: Performing Lab:Giulia [id number] Daniel Oliva[address] Oralia Tapia MD Notes/Report: 0 0 0 0 0 TSH W/REFLEX TO FT4 1.33 Reference Range > or = 20 Years 0.40-4.50 Ranges First trimester 0.26-2.66 Second trimester 0.55-2.73 Third trimester 0.43-2.91 VITAMIN B12/FOLATE, SERUM PA BRYSON (7065) Reviewed date:03/23/2025 10:27:35 AM Interpretation: Performing Lab:Giulia BARTLETTa10101 Daniel Oliva[address] Oralia Tapia MD Notes/Report: 0 0 0 0 0 VITAMIN B12 166 600-7024 pg/mL FOLATE, SERUM 23.8 Reference Range Low: <3.4 Borderline: 3.4-5.4 Normal: >5.4 URINALYSIS, COMPLETE W/REFLE X TO CULTURE (3020) Reviewed date:03/23/2025 10:27:35 AM Interpretation: Performing Lab:Giulia BARTLETTAidymn75141 Sandi OlivaaKS[address] Oralia Tapia MD Notes/Report: 0 0 0 [...] TO FOLLOW CULTURE, URINE, ROUTINE Micro Number: [id number] Test Status: Final Specimen Source: Urine Specimen [...] TO FOLLOW CULTURE, URINE, ROUTINE Micro Number: [id number] Test Status: Final Specimen Source: Urine Specimen Quality: Adequate Result: Mixed genital kathi isolated. These superficial bacteria are not indicative of a urinary tract infection. No further organism identification is warranted on this specimen. If clinically indicated, recollect clean-catch, mid-stream urine and transfer immediately to Urine Culture Transport Tube. CBC (INCLUDES DIFF/PLT) (639 9) Reviewed date:03/23/2025 10:27:35 AM Interpretation: Performing Lab:Giulia BARTLETT-Utzkwy14428 Issa [place], PwivruBO[address] Oralia Tapia MD Notes/Report: 0 0 0 [...] MPV 10.5 7.5-12.5 fL ABSOLUTE NEUTROPHILS 2716 9033-9229 cells/uL ABSOLUTE LYMPHOCYTES 2094 850-3900 cells/uL ABSOLUTE MONOCYTES 526 200-950 cells/uL ABSOLUTE EOSINOPHILS 241 15-500 cells/uL ABSOLUTE BASOPHILS 22 0-200 cells/uL NEUTROPHILS 48.5 LYMPHOCYTES 37.4 MONOCYTES 9.4 EOSINOPHILS 4.3 BASOPHILS 0.4 COMPREHENSIVE METABOLIC PANE L (34050) Reviewed date:03/23/2025 10:27:35 AM Interpretation: Performing Lab:Giulia BARTLETT-Rbqvlf27987 Iss[facility], OijecbLW[address] Oralia Tapia MD Notes/Report: 0 0 0 [...] 18 10-30 U/L ALT 11 6-29 U/L Reason For Referral Reason MRI brain without co ntrast Diagnosis 1 Persistent headaches (R51.9) [facility] Referring Provider First Name Alexa Referring Provider Last Name Referring Provider [facility] sveta Referred Provider Centralized [facility] Procedure 1 MRI BRAIN W/O DYE (7 0503) General Notes Jesi Krishnan 2023 09:08:44 AM >Insurance and ID attached.Ariella Wendy 10/22/2024 02:08:57 PM >TC to [facility]/[employer]. Tracking number: [id number], Faxed clinicals to [facility] at [phone].Ariella Wendy 10/22/2024 05:36:26 PM >Fax rec'd from [facility] verifying MRI approval. Prior auth information attached. , Referral faxed.Ariella Wendy 10/24/2024 12:32:38 PM >Attempt TC to [facility] Centralized Scheduling. Left message to return my call.Ariella Wendy 10/29/2024 03:16:56 PM >Rec'd fax from [facility] Centralized Scheduling stating they haven't been able to reach pt., TC to pt. Provided her the number to schedule w/ [facility]., Jesi Krishnan 10/31/2024 08:39:28 AM >TC to Harry w/ [facility] Centralized Scheduling. Confirmed pt's appt 10/31/24 at 3:15 pm. Pt notified of appt by their clinic. Referral Priority Routine Referral Appointment Date 10/31/2024 Reason Consult please Diagnosis 1 Persistent headaches (R51.9) Referral Organization [facility] [employer] Referring Provider First Name Alexa Referring Provider Last Name Referring Provider [facility] sveta Referred Provider Headache Management, [facility] General Notes Jesi Krishnan 2023 08:56:17 PM >Insurance and ID attached. Referral faxed.Ariella Wendy 10/31/2024 11:20:51 AM >[facility] Confirmed receipt of referral. Pt not scheduled yet. They will call pt directly to schedule., Jesi Krishnan 11/07/2024 10:56:16 AM >TC [facility] Mandy [facility]. No appt yet. Was told pt is on the list to call but pt can call them instead of waiting., TC to pt. Provided her their number and requested she contact our clinic to confirm appt after scheduled. , [facility] Jesi Krishnan 11/12/2024 02:15:35 PM >TC to Marianna w/ Headache Management. No appt scheduled., Jesi Krishnan 12/23/2024 10:42:41 AM >TC to Des[facility]wn [facility]. No appt yet. Deshawn states he will call pt today to get her scheduled.Ariella Wendy 01/06/2025 11:10:50 AM >TC to Mandy w/ Headache Management. Was told they've tried calling pt w/ no returned call., I've called pt and provided her their number as well., Closing referral. Referral Priority Routine Medications Medication SIG (Take, Route, Frequency, Duration) Notes Start Date End Date Status Amitriptyline HCl 10 MG TAKE ONE TABLET BY MOUTH ONCE DAILY AT BEDTIME Oral; Duration: 30 Days Active oxyCODONE HCl 5 MG Oral; Duration: 2 Days Not-Taking Sertraline HCl 50 MG TAKE 1 TABLET BY MO UTH DAILY Oral; Duration: 30 Days Not-Taking Omeprazole 20 MG 1 capsule 1/2 to 1 hour before morning meal Orally Once a day; Duration: 30 day(s) 03/11/2025 Active Rizatriptan Benzoate [address] one tab let ON TOP OF THE TONGUE WHERE IT WILL DISSOLVE THEN SWALLOW AT ONSET OF MIGRAINE MAY REPEAT IN TWO HOURS IF NEEDED MAX DOSE TWO TABLETS IN 24 HOURS Oral; Duration: 30 Days Active metroNIDAZOLE 500 MG Oral; Duration: 7 Days [...] As needed for migraine headache 09/18/2024 Not-Taking Social History Sex Assigned At : Social History Observation Description Sex Assigned At Female Household Question Answer Notes Marital status: Problems Problem Type SNOMED Code ICD Code Onset Dates Problem Status W/U Status Risk Notes Problem Dysuria (61327420) Dysuria (R30.0) Active confirmed Problem Acute urinary tract infection (362972455) Acute UTI (N39.0) Active confirmed Vital Signs Heart Rate 82 /min 03/19/2025 Temperature 98.3 degrees Fahrenheit 03/19/2025 Height-cm 170.18 cm 03/19/2025 Oximetry 96 % 03/19/2025 Blood pressure diastolic 76 mm Hg 03/19/2025 Weight-kg 81.1 kg 03/19/2025 Height 67 in 03/19/2025 Blood pressure systolic 122 mm Hg 03/19/2025 Weight 178.8 lbs 03/19/2025 BMI 28 kg/m2 03/19/2025 Encounters Encounter Location Date Provider Diagnosis [facility] [address] [address] 03/19/2025 Alexa [place] Malaise R53.81 [facility] [address] [address] 09/18/2024 Alexa Shirley Dysuria R30.0 ; Acut e UTI N39.0 ; Nausea R11.0 ; Persistent headaches R51.9 and Family history of migraine headaches in mother Z82.0 [facility] [address] [address] 09/23/2024 Alexa Shirley Persistent headaches R51.9 and Family history of migraine headaches in mother Z82.0 [facility] hospital [facility] [address] [address] 10/08/2024 Alexa Shirley Persistent headaches R51.9 Critical access hospital [facility] [address] 01/07/2025 Alexa Shirley Persistent headaches R51.9 [facility] hospital [facility] [address] [address] 01/27/2025 Alexa Shirley URI, acute J06.9 and Acute otitis media, right H66.91 Critical [facility] hospital [facility] [address] [place] [address] 03/10/2025 Alexa Shirley RUQ pain R10.11 Critical access hospital [facility] [address] [place] [address] 09/26/2024 Alexa Shirley Persistent headaches R51.9 [facility] [address] [place] [address] 09/30/2024 Alexa Shirley [facility] [address] [place] [phone] 03/23/2025 Alexa Shirley Assessments Encounter Date Diagnosis (ICD Code) Assessment Notes Treatment Notes Treatment Clinical Notes Section Notes 09/18/2024 Dysuria (ICD-10 - R30.0) 09/18/2024 Acute UTI (ICD-10 - N39.0) 09/23/2024 Persistent headaches (ICD-10 - R51.9) Call or return if worsening or not improving. 09/23/2024 Family history of migraine headaches in mother (ICD-10 - Z82.0) 09/26/2024 Persistent headaches (ICD-10 - R51.9) 10/08/2024 Persistent headaches (ICD-10 - R51.9) Recommend OTC magnesium 400- 600 mg and B2 400 mg daily. Will arrange for MRI due to persistent headaches 01/07/2025 Persistent headaches (ICD-10 - R51.9) 01/27/2025 URI, acute (ICD-10 - J06.9) 01/27/2025 Acute otitis media, right (ICD-10 - H66.91) 03/10/2025 RUQ pain (ICD-10 - R10.11) 03/19/2025 Malaise (ICD-10 - R53.81) 09/18/2024 Nausea (ICD-10 - R11.0) 09/18/2024 Persistent headaches (ICD-10 - R51.9) 09/18/2024 Family history of migraine headaches in mother (ICD-10 - Z82.0) 01/07/2025 Other Form completed for her for school. See scanned document. 03/10/2025 Other food diary. bland/low fat diet. diff dx includes cholecystitis. consider labs and imaging if not better at f/u Call or return if worsening or not improving. Plan Of Treatment No Information Insurance Providers Payer Name Payer Address Payer Phone Subscriber Number Group Number Insured Name Patient Relationship to Insured Coverage Start Date Coverage End Date [facility] [address] [facility] [place] [address] [phone] [id number] Arleth Gan Self - patient is the insured
--- OUTSIDE RECORDS SUMMARY | 2025-06-04 12:16 | XMS_ITS | Clinical Summary ---
Author Organization [facility] Address [address] [place] [address] Care Team Providers Care Chocolate Maker Name Role Phone Keshawn Biggs MD Primary Care Provider [phone] Allergies No known active allergies Medications ibuprofen (MOTRIN) 200 mg tabletIndicati ons:Acute pain of right knee Take 200 mg by mouth every 6 hours as needed for Pain, Mild. 06/07/20 18 Active ondansetron (ZOFRAN ODT) 4 mg Tablet, Rapid Dissolve Take 1 Tablet (4 mg) by mouth every 6 hours as needed for Nausea/Emesis. Dissolve tablet on top of tongue, then swallow with saliva. 30 Tablet 02/28/20 25 Active ZOLMitriptan (Zomig) 5 mg tablet Take 1 tablet at onset of migraine, may repeat in 2 hours if needed; max dose 10mg in 24 hours 9 Tablet 04/30/20 25 Active venlafaxine (EFFEXOR XR) 37.5 mg Extended Release 24 hour capsule Take 1 Capsule (37.5 mg) by mouth daily. 30 Capsule 05/14/20 25 Active amitriptyline (ELAVIL) 10 mg tablet Take 1 Tablet (10 mg) by mouth daily at bedtime. 30 Tablet 02/28/20 25 025 Discontinued galcanezumab-g nlm (Emgality Pen) 120 mg/mL Pen Injector Inject 1 mL by subcutaneous injection every 30 days. Start month after loading dose. 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.02) 08/24 Hypertrophy of tonsil with adenoids 09/14/2009 Encounters Date Type Department Care Team Description 05/14/2025 Orders Only [facility] Headache Management [place] [id number] [facility] [address] [place] [address] Minerva Garcia NP 05/07/2025 External Device Data STL ABSTRACTION Provider, Abstract 05/06/2025 External Device Data STL ABSTRACTION Provider, Abstract 04/30/2025 8:10 AM CDT Video Visit [facility] [place] [address] [facility] [address] [place] [address] Minerva Garcia NP Intractable chronic migraine without aura and without status migrainosus (Primary Dx) 04/08/2025 External Device Data STL ABSTRACTION Provider, Abstract 03/13/2025 External Device Data STL ABSTRACTION Provider, Abstract 03/13/2025 External Device Data STL ABSTRACTION Provider, Abstract 03/13/2025 External Device Data STL ABSTRACTION Provider, Abstract 03/12/2025 External Device Data STL ABSTRACTION Provider, Abstract 03/11/2025 External Device Data STL ABSTRACTION Provider, Abstract from Last 3 Months Immunizations Immunization Administration Dates Next Due (M-M-R II/PRIORIX)(12 MO UP) MEASLES, MUMPS AND RUBELLA VIRUS VACCINE, 0.5 ML IM/SUBCUT 09/20/2006,09/01/2003 (VARIVAX)(12 MOS UP)VARICELL A VIRUS VACCINE (PF) 0.5 ML, SUB CUT 09/20/2006,09/01/2003 Dt Dtp Dtap Vaccine 09/20/2006, 4,02/19/2003,2002,2002 HIB, Unspecified Formulation 09/01/2003,12/26/19 03,2002 Hepatitis B Vaccine 09/01/2003,2002,2001 IPV/OPV 09/20/2006, 3,2002,2002 Influenza Seasonal Unspecifi ed Formulation IM 07/31/2007 Influenza Vaccine Nasal 08/01/2011 Influenza Vaccine Split 3+ Yrs IM 07/29/2009, Pneumococcal 7-valent conjug ate vaccine IM 02/19/2003,2002,2002 Family History Medical History Relation Name Comments Healthy Father Asthma Mother Relation Name Status Comments Father Alive Mother Alive Social History Tobacco Use Types Packs/Day Years Used Date Smoking Tobacco: Never Smokeless Tobacco: Never Tobacco Cessation:Counseling Given: Not Answered Alcohol Use Standard Drinks/Week Comments Not Asked 0 (1 standard drink = 0.6 oz pur e alcohol) Comments Unknown Sex and Gender Information Value Date Recorded Sex Assigned at Not on file Legal Sex Female 4: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 Gender Identity Not on file Sexual Orientation Not on file Last Filed Vital Signs Vital Sign Reading Time Taken Comments Blood Pressure 110/79 02/27/2025 1:42 PM CDT Pulse 100 02/27/2025 1:42 PM CDT Temperature 37.2 C (98.9 F) 01/05/2016 8:26 AM CDT Respiratory Rate - - Oxygen Saturation 94% 02/27/2025 1:42 PM CDT Inhaled Oxygen Concentration - - Weight 74.8 kg (165 lb) 02/27/2025 1:42 PM CDT Height 175.3 cm (5' 9 ) 02/27/2025 1:42 PM CDT Body Mass Index 24.37 02/27/2025 1:42 PM CDT Plan of Treatment Upcoming Encounters Date Type Department Care Team (Late st Contact Info) Description 09/08/2025 10:50 AM SENIOR ORACLE ADF DEVELOPER Video Visit [facility] [address] [place] [address] Minerva Garcia, FEATHEREDGER AND REDUCER MACHINE [address] [place] [address] Health Maintenance Due Date Last Done Comments CHLAMYDIA SCREENING (ANNUAL) 11-24 YEARS 2013 DTAP/TDAP/TD VACCINES (6 - Tdap) 2013 09/20/2006, 11/21/2003, 02/19/2003, Additional history exists HPV VACCINES (1 - 3-dose series) 2017 CERVICAL CANCER SCREENING 2023 HPV/Cotest (21-29) 2023 PAP SMEAR 2023 INFLUENZA VACCINE (#1) 2025 1, 07/29/2009, 08/20/2008, Additional history exists HEPATITIS B VACCINES Completed 09/01/2003, 2002, 2002 Insurance LEOLA OLMOS [id number] [facility] [place]OS [id number] [facility] [place] [id number] Care Teams Chocolate Maker Relationship Specialty Start [place] [address] [place] [address] PCP - General Pediatrics 11/25/15
== END 2025-06-02 21:18 | disposition home or self-care (01) ==
PROVIDERS: Emergency Provider Physician Assistant; PCP Nurse Practitioner
DX: R10.11 Right upper quadrant pain (principal); K80.80 Other cholelithiasis without obstruction
CPT/HCPCS: 36415; 80053; 81001; 83605; 83690; 84703; 85025; 96361; 96374; 96375; 96376; 99284; J1885; J2270; J2360; J2405; J7030; J9999

== ENCOUNTER 2025-06-05 14:45 | Emergency (ER) | payer MEDICAID, SELFPAY ==
--- OUTSIDE RECORDS SUMMARY | 2003-10-22 19:00 | XMS_ITS | Continuity of Care Document ---
Author Name [facility] Address [address] [place] [address] [address] [facility] Care Team Providers Care Bowling Alley Operator Name Role Phone [facility] Unavailable Unavailable Problems Problem Status Onset Date Problem Type Date of Resolution Comments Source Poor growth affecting management (disorder) Active Condition Patient examined (context-dependent category) Diagnosis Venereal disease in mother complicating , childbirth AND/OR puerperium (disorder) Diagnosis Chlamydial infection (disorder) Diagnosis Gestation period, 19 weeks (finding) Diagnosis finding (finding) Diagnosis Lower abdominal pain (finding) Diagnosis Syncope and collapse (disorder) Diagnosis Disease of circulatory system complicating childbirth and puerperium Diagnosis Cardiac arrhythmia (disorder) Diagnosis Left against medical advice (finding) Diagnosis 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) Diagnosis Acute posthemorrhagic anemia (disorder) Diagnosis Anemia during the puerperium (disorder) Diagnosis Hypertensive urgency (disorder) Diagnosis Streptococcus agalactiae infection (disorder) Diagnosis Single live (finding) Diagnosis Tietze's disease (disorder) Diagnosis Labor and delivery complicated by heart rate anomaly with meconium in amniotic fluid (disorder) Diagnosis Gestation period, 27 weeks (finding) Diagnosis Family history of chronic obstructive lung disease (context-dependent category) Diagnosis Other infections with a predominantly sexual mode of transmission complicating , second tri Active Diagnosis Unspecified pre-eclampsia, second trimester Active Diagnosis Encounter for other general examination Active Diagnosis Procedure and treatment not carried out due to patient leaving prior to being seen by health care pr Active Diagnosis Procedures Procedure Code Date Perfomer Comments Source wisdom teeth removal [facility] tonsillectomy [facility]/ [facility]
--- OUTSIDE RECORDS SUMMARY | 2025-03-19 09:50 | XMS_ITS ---
Author Organization [facility] [employer] [facility] Address [address] [address] Care Team Providers Care Human Resource Internship Name Role Phone Alexa Shirley Unavailable [phone] Allergies No Known Allergies Results Component Value Reference Range Notes COMPREHENSIVE METABOLIC PANE L (56487) Reviewed date:03/23/2025 10:27:35 AM Interpretation: Performing Lab:[place], [facility]-[id number] Issa [facility], [id number] Oralia Tapia MD Notes/Report: 0 0 0 [...] Reviewed date:03/23/2025 10:27:35 AM Interpretation: Performing Lab:Giulia BARTLETT-[id number] Mane [id number] Oralia Tapia MD Notes/Report: 0 0 0 [...] MPV 10.5 7.5-12.5 fL ABSOLUTE NEUTROPHILS 2716 4844-9805 cells/uL ABSOLUTE LYMPHOCYTES 2094 850-3900 cells/uL ABSOLUTE MONOCYTES 526 200-950 cells/uL ABSOLUTE EOSINOPHILS 241 15-500 cells/uL ABSOLUTE BASOPHILS 22 0-200 cells/uL NEUTROPHILS 48.5 LYMPHOCYTES 37.4 MONOCYTES 9.4 EOSINOPHILS 4.3 BASOPHILS 0.4 URINALYSIS, COMPLETE W/REFLE X TO CULTURE (3020) Reviewed date:03/23/2025 10:27:35 AM Interpretation: Performing Lab:Giuila BARTLETT-[id number] Issa [place], [id number] Oralia Tapia MD Notes/Report: 0 0 0 [...] TO FOLLOW CULTURE, URINE, ROUTINE Micro Number: [id number] Test Status: Final Specimen Source: Urine Specimen [...] TO FOLLOW CULTURE, URINE, ROUTINE Micro Number: [id number] Test Status: Final Specimen Source: Urine Specimen Quality: Adequate Result: Mixed genital kathi isolated. These superficial bacteria are not indicative of a urinary tract infection. No further organism identification is warranted on this specimen. If clinically indicated, recollect clean-catch, mid-stream urine and transfer immediately to Urine Culture Transport Tube. VITAMIN B12/FOLATE, SERUM PA BRYSON (7065) Reviewed date:03/23/2025 10:27:35 AM Interpretation: Performing Lab:DHRUV [facility] Anna-[id number] Issa [place], [id number] Oralia Tapia MD Notes/Report: 0 0 0 0 0 VITAMIN B12 865 946-7419 pg/mL FOLATE, SERUM 23.8 Reference Range Low: <3.4 Borderline: 3.4-5.4 Normal: >5.4 TSH W/REFLEX TO FT4 (17840) Reviewed date:03/23/2025 10:27:35 AM Interpretation: Performing Lab:DHRUV [facility]-[id number] Issa [place], [id number] Oralia Tapia MD Notes/Report: 0 0 0 [...] 03/19/2025 Encounters Encounter Location Date Provider Diagnosis [address] [address] 03/19/2025 Alexa Shirley Malaise R53.81 Assessments Encounter Date Diagnosis (ICD Code) Assessment Notes Treatment Notes Treatment Clinical Notes Section Notes 03/19/2025 Malaise (ICD-10 - R53.81) Plan Of Treatment No Information Progress Notes * Arleth GAN KDOB:[birth year] (24 yo F)Acc No.[id number]:03/19/2025 Patient: Arleth LOVETT K Provider: Kelsy Shirley :2000 A ge:24 Y S ex:Female Date:03/19/2025 Address:[address] [place] [address] , [place] [id number] Subjective: * Chief Complaints: * 1 . [...] Area: 1.96. Assessment: * Assessment: [facility]. [facility] - R53.81 (Primary) Plan: * Treatment: Value [...] - mL/min/1 .73m2 ?LAB: CBC (INCLUDES DIFF/PLT) (0816) (Collection Date & Time - 03/20/2025 08:40 [...] - % * A BSOLUTE NEUTROPHILS 2716 7426-6902 - cells/uL * L YMPHOCYTES 37.4 - [...] fL ?LAB: URINALYSIS, COMPLETE W/REFLEX TO CULTURE (8190) (Collection Date & Time - 03/20/2025 08:40AM)* [...] 23.8 - ng/mL * V ITAMIN B12 512 409-8229 - pg/mL ?LAB: TSH W/REFLEX TO FT4 (26438) (Collection Date & Time - 03/20/2025 08:40 [...] signature of Chele Shirley , FNPBCMSN on 06/05/2025 at 02:50 PM CDT Sign off status: Pending * Provider: Kelsy Shirley Date: 0 03/19/2025 Generated for Romelia vizcaino/Prakash/eTkaren on: 0 06/05/2025 02:50 PM CDT History and Physical Notes * [...]
--- OUTSIDE RECORDS SUMMARY | 2025-05-20 06:40 | XMS_ITS ---
Author Organization [facility] Address [address] [place] [address] Care Team Providers Care Culinary Director Name Role Phone Alexa Shirley [phone] REASON FOR VISIT symptoms continue Social History Sex Assigned At : Social History Observation Description Sex Assigned At Female Encounters Encounter Location Date [facility] [address] [address] 05/20/2025 Aleax Shirley Plan Of Treatment No Information Progress Notes * Arleth GAN KDOB:[birth year] (24 yo F)Acc No.[id number]:05/20/2025 Patient: Maksim STOCK Arleth Cardenas Provider: Kelsy Shirley :2000 A ge:24 Y S ex:Female Date:05/20/2025 Address:[address] [place], [place] [id number] Subjective: * Chief Complaints: * 1 . Symptoms continue. * Medical History: Objective: * Vitals: Assessment: Plan: * Treatment: * Billing Information: * Visit Code: * Procedure Codes: * Electronic signature of Chele Shirley GUYPBCMSNehemiah on 06/05/2025 at 02:50 PM CDT Sign off status: Pending * Provider: Kelsy Shirley Date: 05/20/2025 Generated for Romelia ng/Faxing/eTransmitting on: 06/05/2025 02:50 PM CDT
[2025-06-05] VITALS (9 sets, daily range): BP systolic 94–128; BP diastolic 63–79; PULSE 68–82; RESP 16–18; TEMP 36.8; O2SAT 97–100; BMI 26.6
--- OUTSIDE RECORDS SUMMARY | 2025-06-05 14:50 | XMS_ITS | Patient Health Record ---
Author Organization [facility] Address [address] [address] Care Team Providers Care Jewelry Dipper Name Role Phone Alexa Shirley Unavailable [phone] Allergies No Known Allergies Results Component Value Reference Range Notes CULTURE, URINE, ROUTINE (395 ) Reviewed date:09/22/2024 06:12:35 AM Interpretation: Performing Lab:[facility], [facility]-[id number] [facility], [id number] Oralia Tapia MD Notes/Report: 0 CULTURE, URINE, ROUTINE SEE NOTE CULTURE, URINE, ROUTINE Micro Number: [id number] Test Status: Final Specimen Source: Urine, clean catch Specimen Quality: Adequate Result: Greater than 100,000 CFU/mL of Staphylococcus saprophyticus The Clinical Laboratory Standards [place] (CLSI) does not advise routine susceptibility testing [...] 3+ Ketones neg neg - 4+ Specific [place] 1.015 1 - 1.030 Blood 3+ (200) neg - 3+ Ph 6.5 5.0 - 9.0 Protein 2+ (100) neg - 4+ Urobilinogen neg 0.2 - 12 mg/dl Nitrites neg neg - pos Leukocytes 2+ (125) neg - 3+ TSH W/REFLEX TO FT4 (18980) Reviewed date:03/23/2025 10:27:35 AM Interpretation: Performing Lab:Giulia [id number] Daniel [id number] Oralia Tapia MD Notes/Report: 0 0 0 0 0 TSH W/REFLEX TO FT4 1.33 Reference Range > or = 20 Years 0.40-4.50 Ranges First trimester 0.26-2.66 Second trimester 0.55-2.73 Third trimester 0.43-2.91 VITAMIN B12/FOLATE, SERUM PA BRYSON (7065) Reviewed date:03/23/2025 10:27:35 AM Interpretation: Performing Lab:Giulia BARTLETTa10101 Daniel Oliva[address] Oralia Tapia MD Notes/Report: 0 0 0 0 0 VITAMIN B12 690 362-7477 pg/mL FOLATE, SERUM 23.8 Reference Range Low: <3.4 Borderline: 3.4-5.4 Normal: >5.4 URINALYSIS, COMPLETE W/REFLE X TO CULTURE (3020) Reviewed date:03/23/2025 10:27:35 AM Interpretation: Performing Lab:Giulia [id number] Sandi OlivaaKS[address] Oralia Tapia MD Notes/Report: 0 [...] TO FOLLOW CULTURE, URINE, ROUTINE Micro Number: [id number] Test Status: Final Specimen Source: Urine Specimen [...] TO FOLLOW CULTURE, URINE, ROUTINE Micro Number: [id number] Test Status: Final Specimen Source: Urine Specimen Quality: Adequate Result: Mixed genital kathi isolated. These superficial bacteria are not indicative of a urinary tract infection. No further organism identification is warranted on this specimen. If clinically indicated, recollect clean-catch, mid-stream urine and transfer immediately to Urine Culture Transport Tube. CBC (INCLUDES DIFF/PLT) (639 9) Reviewed date:03/23/2025 10:27:35 AM Interpretation: Performing Lab:Giulia BARTLETT-[id number] Issa [place], [id number] Oralia Tapia MD Notes/Report: 0 0 0 [...] MPV 10.5 7.5-12.5 fL ABSOLUTE NEUTROPHILS 2716 1997-6555 cells/uL ABSOLUTE LYMPHOCYTES 2094 850-3900 cells/uL ABSOLUTE MONOCYTES 526 200-950 cells/uL ABSOLUTE EOSINOPHILS 241 15-500 cells/uL ABSOLUTE BASOPHILS 22 0-200 cells/uL NEUTROPHILS 48.5 LYMPHOCYTES 37.4 MONOCYTES 9.4 EOSINOPHILS 4.3 BASOPHILS 0.4 COMPREHENSIVE METABOLIC PANE L (72356) Reviewed date:03/23/2025 10:27:35 AM Interpretation: Performing Lab:Giulia BARTLETT-Khswml03115 [facility], [id number] Oralia Tapia MD Notes/Report: 0 0 0 [...] Diagnosis 1 Persistent headaches (R51.9) [facility] Referring Provider First Name Alexa Referring Provider Last Name Referring Provider [facility] sveta Referred Provider Centralized [facility] Procedure 1 MRI BRAIN W/O DYE (7 0570) General Notes Jesi Krishnan 2023 09:08:44 AM >Insurance and ID attached.Ariella Wendy 10/22/2024 02:08:57 PM >TC to [facility]/[employer]. Tracking number: [id number], Faxed clinicals to [facility] at [phone].Ariella Wendy 10/22/2024 05:36:26 PM >Fax rec'd from [facility] verifying MRI approval. Prior auth information attached. , Referral faxed.Ariella Wendy 10/24/2024 12:32:38 PM >Attempt TC to [facility] Centralized Scheduling. Left message to return my call.Ariella Wendy 10/29/2024 03:16:56 PM >Rec'd fax from [facility] Centralized Scheduling stating they haven't been able to reach pt., TC to pt. Provided her the number to schedule w/ [facility]., Jesi Krishnan 10/31/2024 08:39:28 AM >TC to Harry w/ [facility] Centralized Scheduling. Confirmed pt's appt 10/31/24 at 3:15 pm. Pt notified of appt by their clinic. Referral Priority Routine Referral Appointment Date 10/31/2024 Reason Consult please Diagnosis 1 Persistent headaches (R51.9) Referral Organization [facility] Referring Provider First Name Alexa Referring Provider Last Name Referring Provider [facility] sveta Referred Provider Headache Management, [facility] General Notes Jesi Krishnan 2023 08:56:17 PM >Insurance and ID attached. Referral faxed.Ariella Wendy 10/31/2024 11:20:51 AM >TC [facility] Rita w[facility]. Confirmed receipt of referral. Pt not scheduled yet. They will call pt directly to schedule., Jesi Krishnan 11/07/2024 10:56:16 AM >TC to Mandy w/ [facility]. No appt yet. Was told pt is on the list to call but pt can call them instead of waiting., TC to pt. Provided her their number and requested she contact our clinic to confirm appt after scheduled. , [facility] Jesi Krishnan 11/12/2024 02:15:35 PM >TC to Marianna w/ Headache Management. No appt scheduled., Jesi Krishnan 12/23/2024 10:42:41 AM >TC to Deshawn w/ [facility]. No appt yet. [...] Status W/U Status Risk Notes Problem Dysuria (11513111) Dysuria (R30.0) Active confirmed Problem Acute urinary tract infection (518030730) Acute UTI (N39.0) Active confirmed Vital Signs Heart Rate 82 /min 03/19/2025 Temperature 98.3 degrees Fahrenheit 03/19/2025 Height-cm 170.18 cm 03/19/2025 Blood pressure diastolic 76 mm Hg 03/19/2025 Oximetry 96 % 03/19/2025 Weight-kg 81.1 kg 03/19/2025 Height 67 in 03/19/2025 Blood pressure systolic 122 mm Hg 03/19/2025 Weight 178.8 lbs 03/19/2025 BMI 28 kg/m2 03/19/2025 Encounters Encounter Location Date Provider Diagnosis [facility] [employer] [address] [address] 03/19/2025 Alexa [place] Malaise R53.81 [facility] [employer] [address] [address] 09/18/2024 Alexa Shirley Dysuria R30.0 ; Acut e UTI N39.0 ; Nausea R11.0 ; Persistent headaches R51.9 and Family history of migraine headaches in mother Z82.0 [facility] [employer] [address] [address] 09/23/2024 Alexa Shirley Persistent headaches R51.9 and Family history of migraine headaches in mother Z82.0 [facility] [employer] [address] [address] 10/08/2024 Alexa Shirley Persistent headaches R51.9 [facility] [address] [address] 01/07/2025 Alexa Shirley Persistent headaches R51.9 [facility] [employer] [address] [address] 01/27/2025 Alexa Shirley URI, acute J06.9 and Acute otitis media, right H66.91 [facility] [employer] [facility] [address] [place] [address] 03/10/2025 Alexa Shirley RUQ pain R10.11 [facility] [employer] [facility] [address] [place] [address] 09/26/2024 Alexa Shirley Persistent headaches R51.9 [facility] [address] [place] [address] 09/30/2024 Alexa Shirley [facility] [employer] [facility] [address] [place] [address] 03/23/2025 Alexa Shirley Assessments Encounter Date Diagnosis [...] Insured Coverage Start Date Coverage End Date [facility] [address] [place] [place] [address] [id number] Arleth Gan Self - patient is the insured
--- OUTSIDE RECORDS SUMMARY | 2025-06-05 14:50 | XMS_ITS | Clinical Summary ---
Author Organization [facility] Address [address] [place] [address] Care Team Providers Care Hydrology Teacher Name Role Phone Keshawn Biggs MD Primary Care Provider [phone] Allergies No known active allergies Medications ibuprofen [...] Department Care Team Description 05/14/2025 Orders Only [facility] [place] [id number] [facility] [address] [place] [address] Minerva Garcia NP 05/07/2025 External Device Data STL ABSTRACTION Provider, Abstract 05/06/2025 External Device Data STL ABSTRACTION Provider, Abstract 04/30/2025 8:10 AM CDT Video Visit [facility] [address] [facility] [address] [place] [address] Minerva Garcia NP Intractable chronic migraine without [...] on file Legal 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 Gender Identity Not on file Sexual Orientation [...] st Contact Info) Description 09/08/2025 10:50 AM SCIENTIFIC PROGRAMMER ANALYST Video Visit [facility] Pool [address] [place] [address] Minerva Garcia, SANDER AND POLISHER [address] [place] [address] Health Maintenance Due Date Last [...] Completed 09/01/2003, 2002, 2002 Insurance LEOLA OLMOS [id number] [facility] MEDICAID LEOLA OLMOS [id number] [facility] LEOLA OLMOS [id number] Care Teams Hydrology Teacher Relationship Specialty Start [place] [address] [place] [address] PCP - General Pediatrics 11/25/15
[2025-06-05 15:28] LABS: Hematocrit 42.0 % (36-47); Hemoglobin 13.70 g/dL (11.27-16.99); Mean Corpuscular HGB Conc 32.6 g/dL (30-55); Mean Corpuscular Hemoglobin 28.9 pg (27-33); Mean Corpuscular Volume 88.6 fl (85-98); Nucleated Red Blood Cells % 0 %; Platelet Count 244 10^3/cmm (157-399); Red Blood Count 4.74 10^6/uL (3.85-5.65); White Blood Count 4.75 10^3/uL (3.29-11.43)
[2025-06-05 15:57] LABS: Alanine Aminotransferase 10 U/L (0-33); Albumin Level 4.3 g/dL (3.5-5.2); Alkaline Phosphatase 90 U/L (35-105); Anion Gap 15.3 (5-19); Aspartate Amino Transferase 15 U/L (0-32); Blood Urea Nitrogen 9 mg/dL (6-20); Calcium 9.5 mg/dL (8.5-10.5); Carbon Dioxide 26 mmol/L (22-29); Chloride 103 mmol/L (98-107); Creatinine Clr Calc Pharmacy 188.9106; Globulin 3.1 g/dL (1.3-4.6); Glucose 85 mg/dL (65-115); Lipase 53 U/L (13-60); Osmolality Calculated 288 mOsm/kg (285-295); Potassium 4.3 mmol/L (3.5-5.1); Sodium 140 mmol/L (136-145); Total Protein 7.4 g/dL (6.6-8.7)
[2025-06-05 17:54] LABS: Add Urine Microscopic? NO
[2025-06-05 17:58] LABS: Glucose Urine UA Negative (Normal); Nitrate Urine Negative (Negative); Specific Gravity, Urine 1.027 (1.005-1.030)
[2025-06-05 18:01] LABS: Charge for UA Resulting for Rev
--- NOTE | 2025-06-05 18:19 | CTR_ITS ---
PROCEDURE INFORMATION: Exam: CT Abdomen And Pelvis With Contrast Exam date and time: 06/05/2025 6:53 PM Age: 24 years old Clinical indication: Abdominal pain; Generalized; Prior surgery; Surgery date: 6+ months; Surgery type: Csection; Inguinal hernia; Additional info: Ruq/epigastric pain x weeks, 08/01 TECHNIQUE: Imaging protocol: Computed tomography of the abdomen and pelvis with contrast. Axial, coronal and sagittal reformatted images were created and reviewed. Radiation optimization: All CT scans at this facility use at least one of these dose optimization techniques: automated exposure control; mA and/or kV adjustment per patient size (includes targeted exams where dose is matched to clinical indication); or iterative reconstruction. Contrast material: OMNIPAQUE 350; Contrast volume: 100 ml; Contrast route: INTRAVENOUS (IV); COMPARISON: US gall bladder [id number] 05/28/2025 12:23 PM RADIATION DOSE METRICS: Total DLP (mGy-cm): 558.03 FINDINGS: Liver: Unremarkable. Gallbladder and biliary ducts: Cholelithiasis. Pancreas: Unremarkable. Spleen: Unremarkable. Adrenal glands: Normal. No mass. Kidneys and ureters: No mass. No radiodense calculi. No hydronephrosis. Stomach and bowel: No bowel wall thickening. No obstruction. No pneumatosis. Appendix: Status post appendectomy. Intraperitoneal space: Trace nonspecific free pelvic fluid, likely physiologic. No organized fluid collection. No free air. Vasculature: Unremarkable. No aneurysm. Lymph nodes: No pathologically enlarged lymph nodes. Urinary bladder: Unremarkable as visualized. Reproductive: Probable involuting right ovarian corpus luteal cyst. Bones/joints: No acute osseous abnormality. Soft tissues: Unremarkable. CT/CT abdomen pelvis w con* [id number] IMPRESSION: 1. No CT evidence of acute intra-abdominal or pelvic pathology. 2. Additional findings, as above.
[2025-06-05 18:38] LABS: HCG Qualitative Urine. Negative (Negative)
[2025-06-05] MEDS: ondansetron 2 mg/ML SDV 2 mL 4 MG IVP ×2 (18:42→20:35)
[2025-06-05] MEDS: morphine 4 mg/mL SDV 1 mL IVP ×2 (18:45→20:35)
[2025-06-05] MEDS: iohexol 350 mg/mL 500 mL Btl (per mL) IV (19:00)
[2025-06-05] MEDS: oxyCODONE-APAP 5-325 mg Tablet 1 TAB PO (22:01)
--- NOTE | 2025-06-05 22:46 | W.ED.ABDPA2 ---
HPI - Abdominal Pain General: Chief Complaint: Abdominal Pain Stated Complaint: Jose knight Time Seen by Provider: 06/05/25 18:06 History of Present Illness: 24-yo F with recently diagnosed cholelithiasis presents after 3 h of worsening epigastric and right upper quadrant pain rated 10/10. Pain is constant, intensified by food or liquids, and accompanied by nausea and episodic vomiting; liquids are difficult to keep down. Denies diarrhea; reports constipation since onset. Denies and states prior testing has been negative. Prior RUQ US on 05/28 showed multiple gallstones without cholecystitis or ductal dilation. She has not yet undergone CT, HIDA scan, or EGD; general-surgery clinic visit scheduled Monday. No fevers, chest pain, or urinary symptoms. Related Data Date of Last Menstrual Period: 05/30/25 Home Medications ?Medication ?Instructions ?Recorded ?Confirmed No Known Home Medications 05/28/25 06/01/25 Previous Rx's ?Medication ?Instructions ?Recorded oxycodone-acetaminophen 5 mg-325 1 tab PO Q8H PRN pain #20 tabs 06/05/25 mg tablet (Percocet) Allergies Allergy/AdvReac Type Severity Reaction Status Date / Time No Known Allergies Allergy Verified 06/05/25 15:18 PFS ED PFSH: Medical History (Updated 06/05/25 @ 21:57 by Александр Harry MD) No pertinent past medical history neghx: htn,dm,thyroid,dvt/pe PCP: [facility] Contraception management Surgical History History of inguinal hernia repair (~02/2023) History of History of tonsillectomy and adenoidectomy Family History Grandfather Heart disease Maternal Denies family history of Colon cancer Ovarian cancer Diabetes Hyperlipidemia Breast cancer Hypertension Uterine cancer Stroke Social History Smoking and tobacco/nicotine status: never used tobacco/nicotine Alcohol intake: never Substance/Drug Use: never Female Reproductive History: Date of last menstrual period: 05/30/25 Spontaneous abortions: No Physical Exam Const: COMMON NORMALS: no acute distress, patient oriented x3 and alert HENMT: COMMON NORMALS: normocephalic and atraumatic HEAD & SCALP: normocephalic and atraumatic Eye: COMMON NORMALS: Equal, round and reactive pupils present, EOMs intact bilaterally and no scleral icterus PUPIL: Yes Equal, round and reactive pupils present Resp: COMMON NORMALS: normal respiratory effort and No retractions Cardio: COMMON NORMALS: regular rate, regular rhythm and No murmurs present (Cardio) RATE: regular rate RHYTHM: regular rhythm GI: OTHER: Abdomen is soft and nonperitoneal though she does have significant tenderness with palpation of the epigastrium and the right upper quadrant Neuro: COMMON NORMALS: patient oriented x3 SENSORIUM/ORIENTATION: Yes alert Skin: COMMON NORMALS: no rashes or lesions noted GENERAL SKIN EXAM: no rashes or lesions noted Course Vital Signs: Vital signs: Vital Signs Temperature 98.2 F 06/05/25 15:17 Pulse Rate 73 06/05/25 22:07 Respiratory Rate 18 06/05/25 22:07 Blood Pressure 107/71 06/05/25 22:07 Pulse Oximetry 99 06/05/25 22:07 Oxygen Delivery Me thod Room Air 06/05/25 20:52 MDM - Abdominal Pain Medical Decision Making Vital signs remained stable with her ED course. Labs are unremarkable. CT scan does not show evidence of acute cholecystitis or other emergent process warranting hospitalization or emergent surgical intervention. I spoke with on-call surgery who agrees it is reasonable to undergo HIDA scan for definitive diagnostics. She is already scheduled to see a surgeon on Monday next week. She will be discharged in stable and improved condition with a short course of pain medication and follow-up with surgeon on Monday knowing that she is always welcome back in the emergency department if symptoms are worse before then. We discussed at length that it is not entirely clear that her pain is caused by her gallbladder at this time given that both ultrasound and CT scan failed to show gallbladder wall thickening, common bile duct dilation, or pericholecystic fluid. Lab Data 06/05/25 15:10 06/05/25 15:10 Labs/Radiology: Radiology Impressions Abdomen/Pelvis CT 06/05/25 18:[address]: [address] evidence of acute intra-abdominal or pelvic pathology. 2. Additional findings, as above. Laboratory Results WBC 4.75 10^3/uL (3.29-11.43) 06/05/25 15:10 RBC 4.74 10^6/uL (3.85-5.65) 06/05/25 15:10 Hgb 13.70 g/dL (11.27-16.99) 06/05/25 15:10 Hct 42.0 % (36-47) 06/05/25 15:10 MCV 88.6 fl (85-98) 06/05/25 15:10 MCH 28.9 pg (27-33) 06/05/25 15:10 MCHC 32.6 g/dL (30-55) 06/05/25 15:10 RDW 11.9 % (12.1-15.1) L 06/05/25 15:10 Plt Count 244 10^3/cmm (157-399) 06/05/25 15:10 MPV 9.6 fL (7.4-10.4) 06/05/25 15:10 Neut % (Auto) 52.5 % 06/05/25 15:10 Lymph % (Auto) 34.9 % 06/05/25 15:10 [place] % (Auto) 10.3 % 06/05/25 15:10 Eos % (Auto) 1.7 % 06/05/25 15:10 Baso % (Auto) 0.2 % 06/05/25 15:10 Neut # (Auto) 2.49 10^3/uL (1.8-7.7) 06/05/25 15:10 Lymph # (Auto) 1.7 10^3/uL (0.8-4.8) 06/05/25 15:10 [place] # (Auto) 0.5 10^3/uL (0.2-0.9) 06/05/25 15:10 Eos # (Auto) 0.1 10^3/uL (0.0-0.8) 06/05/25 15:10 Baso # (Auto) 0.0 10^3/uL (0.0-0.1) 06/05/25 15:10 Nucleated RBC % (auto) 0 % 06/05/25 15:10 Nucleated RBCs # 0.0 /100WBC 06/05/25 15:10 Sodium 140 mmol/L (136-145) 06/05/25 15:10 Potassium 4.3 mmol/L (3.5-5.1) 06/05/25 15:10 Chloride 103 mmol/L (98-107) 06/05/25 15:10 Carbon Dioxide 26 mmol/L (22-29) 06/05/25 15:10 Anion Gap 15.3 (5-19) 06/05/25 15:10 BUN 9 mg/dL (6-20) 06/05/25 15:10 Creatinine 0.5 mg/dL (0.5-0.9) 06/05/25 15:10 GFR Calculation 154.3 mL/min (90-130) H 06/05/25 15:10 Glucose 85 mg/dL (65-115) 06/05/25 15:10 Calculated Osmolality 288 mOsm/kg (285-295) 06/05/25 15:10 Calcium 9.5 mg/dL (8.5-10.5) 06/05/25 15:10 Total Bilirubin 0.2 mg/dL (0.15-1.2) 06/05/25 15:10 AST 15 U/L (0-32) 06/05/25 15:10 ALT 10 U/L (0-33) 06/05/25 15:10 Alkaline Phosphatase 90 U/L (35-105) 06/05/25 15:10 Total Protein 7.4 g/dL (6.6-8.7) 06/05/25 15:10 Albumin 4.3 g/dL (3.5-5.2) 06/05/25 15:10 Globulin 3.1 g/dL (1.3-4.6) 06/05/25 15:10 Lipase 53 U/L (13-60) 06/05/25 15:10 HCG, Qual Negative (Negative) 06/05/25 17:47 Urine Color Yellow (Yellow) 06/05/25 17:47 Urine Appearance Clear (CLEAR) 06/05/25 17:47 Urine pH 6.5 (5-7) 06/05/25 17:47 Ur Specific [place] 1.027 (1.005-1.030) 06/05/25 17:47 Urine Protein Negative (Negative) 06/05/25 17:47 Urine Glucose (UA) Negative (Normal) 06/05/25 17:47 Urine Ketones Negative (Negative) 06/05/25 17:47 Urine Blood Negative (Negative) 06/05/25 17:47 Urine Nitrate Negative (Negative) 06/05/25 17:47 Urine Bilirubin Negative (Negative) 06/05/25 17:47 Urine Urobilinogen 1.0 mg/dL (Negative) 06/05/25 17:47 Ur Leukocyte Esterase Negative (Negative) 06/05/25 17:47 Amorphous Sediment Not Reportable 06/05/25 17:47 All radiology interpretation(s) finalized by discharge Discharge Plan Discharge Patient Disposition: Home Clinical Impression: Abdominal pain, acute, right upper quadrant Condition: Stable Prescriptions: New oxycodone-acetaminophen [Percocet] 5-325 mg tablet 1 tab PO Q8H PRN (Reason: pain) Qty: 20 0RF No Action No Known Home Medications Discharge Orders: Discharge ED (Routine); Ordered 06/05/25 Ordered By: Александр Harry Other Ambulatory Orders: NM hepatobiliary w phar* [id number] (Routine) Timeframe: 3 Days Facility: [facility] - Location: Radiology Ordered By: Александр Harry Referrals: Alexa Shirley FNP [Primary Care Provider, Family Practice] Discharge Diet: Advance as tolerated Discharge Activity: Increase activity as tolerated Patient Instructions: Abdominal Pain (ED), Opioid Safety, Pain Management, Patient Portal & Fermin Instructions Activity Restrictions/Additional Instructions: Please keep your appointment with the surgeon. I ordered the hepatobiliary scan to be performed soon as possible. If your pain is out of control you are always welcome back to the emergency department to consider hospitalization and expedited diagnostics Print Language: Luxembourgish Coding Level of Care Code ED Sales Ledger Clerk for Malini Chaney
--- NOTE | 2025-06-12 10:13 | DCPLANNER ---
faxed outpatient hida scan order to scheduling
== END 2025-06-05 22:09 | disposition home or self-care (01) ==
PROVIDERS: Family Medicine; Emergency Provider Student in an Organized Health Care Education/Training Program; PCP Nurse Practitioner
DX: R10.11 Right upper quadrant pain (principal)
CPT/HCPCS: 36415; 74177; 80053; 81003; 81025; 83690; 85025; 96361; 96374; 96375; 96376; 99285; J2270; J2405; J7030; J9999

== ENCOUNTER 2025-06-11 10:57 | Day surgery (SDC) | payer MEDICAID, SELFPAY ==
[2025-06-11] VITALS (15 sets, daily range): BP systolic 100–133; BP diastolic 69–92; PULSE 65–93; RESP 11–19; TEMP 36.2–36.6; O2SAT 96–100; BMI 26.6
[2025-06-11 11:38] LABS: OR HCG Qualitative Urine Negative (Negative)
--- NOTE | 2025-06-11 11:38 | P.ANESASSM_ITS ---
Pre-Anesthetic Assessment Height/Weight: Height 1.7 m Operation Date: 06/11/25 12:40 Proposed Procedures p Laparoscopic Cholecystectomy [place] Sue [address] K82.9(Not Applicable) - Richard Harley MD Familial anesthetic complications: None Was Beta Brittny taken within 24 hours: N/A Was Clonidine taken within 24 hours: N/A Last intake: > 8hrs Social No alcohol and No tobacco Exam alert, oriented x 3, clear to auscultation bilaterally and regular rate & rhythm Airway Mallampati: Class I Dentition: full Anesthetic Plan ASA status: 1 Anesthesia: General Risk of > 500 ml blood loss (7ml/kg in children): No Medications/Allergies Home Medications ?Medication ?Instructions ?Recorded ?Confirmed ?Last Taken ?Type oxycodone-acetaminophen 5 mg-325 1 tab PO Q8H PRN pain #20 tabs 06/05/25 06/10/25 06/10/25 Rx mg tablet (Percocet) ondansetron 4 mg disintegrating 4 mg PO PRN vomiting 0 06/10/25 06/10/25 06/10/25 History tablet Allergies Allergy/AdvReac Type Severity Reaction Status Date / Time No Known Allergies Allergy Verified 06/10/25 15:28 [facility] Anesthesia Medical History No pertinent past medical history neghx: htn,dm,thyroid,dvt/pe PCP: [facility] Contraception management Surgical History History of inguinal hernia repair (~02/2023) History of History of tonsillectomy and adenoidectomy Family History Grandfather Heart disease Maternal Denies family history of Colon cancer Ovarian cancer Diabetes Hyperlipidemia Breast cancer Hypertension Uterine cancer Stroke Social History Smoking and tobacco/nicotine status: never used tobacco/nicotine Alcohol intake: never Substance/Drug Use: never Female Reproductive History Spontaneous abortions: No Data Anesthesia Cardiac Studies: Holter Monitor 10/07/20
--- NOTE | 2025-06-11 12:05 | W.PM.OPSUD ---
Surgery/Procedure H&P Update DATE OF PROCEDURE: June 11, 2025 DATE H&P PERFORMED: 06/09/25 H&P UPDATE INFORMATION: I have reviewed H&P completed within last 30 days, I have examined patient prior to procedure, No changes to prior documentation and Risks and benefits of the procedure reviewed PLANNED PROCEDURE: Operation Date: 06/11/25 12:40 Proposed Procedures p Laparoscopic Cholecystectomy [place] [address]5260 K82.9(Not Applicable) - Richard Harley MD
[2025-06-11] MEDS: ceFAZolin 2,000 mg SDV 2000 MG IVP (12:29)
[2025-06-11] MEDS: lidocaine-epi 1% 20 mL INJ INJECTION (13:09)
--- NOTE | 2025-06-11 13:15 | P.OP_ITS ---
Operative Report Date of procedure: June 11, 2025 Pre-op diagnosis: Symptomatic cholelithiasis Post-op diagnosis: same Post-op findings: Retracted gallbladder. Procedure done: Laparoscopic cholecystectomy Implants: N/A Specimens removed/disposition: Gallbladder sent to pathology Pathology: Gallbladder sent to pathology Surgeon: Richard Harley MD Postal Service Mail Processor: N/A Anesthesia: General Estimated blood loss (mL): 10 Complications: N/A Findings: Retracted gallbladder. Condition: stable Disposition: same day Brief History: 24-year-old female who presented with symptomatic cholelithiasis. Discussed risk and benefits and patient agreed to proceed with laparoscopic cholecyst ectomy possible open. Procedure: I discussed the risks and benefits of laparoscopic cholecystectomy, possible open, and obtained consent prior to proceeding to the operating room. SCDs were utilized. Prophylactic antibiotics were administered. General anesthesia was induced. The patient was placed supine, and was prepped and draped in the usual sterile fashion. Insufflation to 15mmHg was achieved using a Veress needle at [place]. A 12mm optiview trocar was placed at the umbilicus under direct visualization. The left upper quadrant was inspected, and no injuries were noted. Two 5mm ports were placed in the right upper quadrant, and a 12mm working port was placed in the epigastrium. The gallbladder was then retracted cephalad through the lateral RUQ port, and the infundibulum grabbed through the medial RUQ port and retracted laterally. The gallbladder was small and retracted. I proceeded to score the peritoneum over the medial aspect of the gallbladder using a laparoscopic hook with electrocautery. Then the infundibulum was retracted medially in order to score the peritoneum over the lateral aspect of the galbladder. Using a combination of energy and blunt dissection with the [place] and a Kittner dissector, the cystic artery and cystic duct were dissected. I then proceeded to dissect the cystic plate in order to to achieve the critical view of safety (CVS - hepatocystic triangle was cleared of fat and fibrous tissue, the lower one-third of the gallbladder was from the liver to expose the cystic plate, two and only two structures were seen entering the gallbladder, the cystic duct and the cystic artery). The cystic artery and the cystic duct were clipped three times (leaving two clips on the proximal end of both structures). I then proceeded to dissect the gallbladder off the liver using hook electrocautery. The specimen was placed in an endocatch bag and retrieved from the abdomen through the port on the epigastrium. I then irrigated the gallbladder fossa with 1L of NS to confirm adequate hemostasis and the absence of any bile leaks. The gallbladder fossa was then cauterized again. Prior to ending the laparoscopic portion, I examined the rest of the abdomen and did not find any abnormalities or injuries. The abdomen was then desufflated, and the 12mm port at the umbilicus was closed using 0 vicryl on a UR needle after irrigating copiously. Skin was closed using 4-0 monocryl and surgical glue. The patient woke up from anesthesia and transferred to PACU without any complications.
[2025-06-11] MEDS: fentaNYL 50 mcg/mL INJ 2mL IVP ×2 (13:48→14:01)
[2025-06-11] MEDS: ondansetron 2 mg/ML SDV 2 mL 4 MG IVP ×2 (13:51→15:04)
--- NOTE | 2025-06-11 14:25 | ANE.PACU2 ---
Inpatient post-anesthesia follow up: Airway intact: Yes Vital signs: Temperature 97.2 F Pulse Rate 87 Respiratory Rate 16 Blood Pressure 130/86 Pulse Oximetry 98 Oxygen Delivery Me thod Room Air Oxygen Flow Rate 8 Fraction of Inspir ed Oxygen Hydration adequate: Yes Nausea and vomiting: No Pain level: 1 Mental status: Baseline
[2025-06-11] MEDS: oxyCODONE 5 mg IR Tab/Cap PO (14:34)
== END 2025-06-11 15:06 | disposition home or self-care (01) ==
PROVIDERS: Anesthesiology; PCP Nurse Practitioner; Visit Provider Student in an Organized Health Care Education/Training Program
PROC: 0FT44ZZ Resection of Gallbladder, Percutaneous Endoscopic Approach (ICD-10-PCS; CPT 47562; principal; 2025-06-11 12:40)
DX: K80.10 Calculus of gallbladder with chronic cholecystitis without obstruction (principal)
CPT/HCPCS: 47562; 81025; 88304; J0690; J1171; J2250; J2405; J2704; J3010; J7030; J9999

== ENCOUNTER → 2025-08-06 10:08 | Outpatient (BNVA) | payer MEDICAID, SELFPAY | PROVIDERS: PCP Nurse Practitioner; Visit Provider Nurse Practitioner Women's Health | DX: N92.6 Irregular menstruation, unspecified (principal) | CPT/HCPCS: 81025 ==

== ENCOUNTER → 2025-09-11 13:44 | Outpatient (BNVA) | payer MEDICAID, SELFPAY | PROVIDERS: PCP Nurse Practitioner; Visit Provider Nurse Practitioner Women's Health | DX: Z34.91 Encounter for supervision of normal pregnancy, unspecified, first trimester (principal) | CPT/HCPCS: 80307; 84315; 85025; 86592; 86762; 86803; 86850; 86900; 87086; 87340; 87806 ==

== ENCOUNTER → 2025-09-24 10:59 | Outpatient (BNVA) | payer MEDICAID, SELFPAY | PROVIDERS: PCP Nurse Practitioner; Visit Provider Obstetrics & Gynecology | DX: O09.91 Supervision of high risk pregnancy, unspecified, first trimester (principal); O09.291 Supervision of pregnancy with other poor reproductive or obstetric history, first trimester; O34.219 Maternal care for unspecified type scar from previous cesarean delivery | CPT/HCPCS: 80053; 82043; 83615; 84315; 84550; 85025; 87491; 87591; 87661 ==